=== PATIENT | male | born 1985 | race Caucasian/White ===

== ENCOUNTER 2018-01-01 10:53 | Emergency (ER) | payer OTHER, MEDICAID, SELFPAY ==
[2018-01-01 11:14] VITALS: BP 127/88; PULSE 90; RESP 18; TEMP 36.7; O2SAT 94
--- NOTE | 2018-01-01 12:02 | ED.ABDPAIN ---
HPI - Abdominal Pain <WILBER Beltran - Last Filed: 01/01/18 22:36> General Chief Complaint: Abdominal Pain Stated Complaint: CHEST PAIN, ABDOMINAL PAIN Time Seen by Provider: 01/01/18 12:02 Source: patient and family Mode of arrival: wheelchair History of Present Illness HPI narrative: 32-year-old male with history of cerebral palsy here for complaint of right-sided abdominal pain for the last week and a half. He also reports having chest pain on and off over the last several days. He denies any trauma. He also reports that he has been having constipation over the same timeframe. He was seen by his primary care provider a week and half ago and treated with MiraLax for the constipation. He reports that this has not helped. He is on Vicodin for pain at due to a compression fracture through his thoracic back. No fevers. Positive p.o. intake. No vomiting he does report having nausea periodically. Last bowel movement was several days ago. He denies any shortness of breath. Related Data Home Medications Medication Instructions Recorded Confirmed Vitamin C 1 tab PO QDAY 01/01/18 01/01/18 Vitamin D3 1 tab PO QDAY 01/01/18 01/01/18 baclofen 20 mg PO TID 01/01/18 01/01/18 hydrocodone-acetaminophen 1 tab PO PRN PRN 01/01/18 01/01/18 Previous Rx's Medication Instructions Recorded magnesium citrate 296 ml PO NOW #296 ml 01/01/18 sodium phosphates [Enema 118 ml MT NOW #133 ml 01/01/18 Disposable] Allergies Allergy/AdvReac Type Severity Reaction Status Date / Time gabapentin Allergy Unknown Verified 01/01/18 12:57 ibuprofen [From Motrin] Allergy Unknown Verified 01/01/18 12:57 Review of Systems <WILBER Beltran - Last Filed: 01/01/18 22:36> Constitutional Denies fever(s) Eyes Reports system reviewed and no additional complaints, except as docu ENT Ears, Nose, Mouth, and Throat: Reports system reviewed and no additional complaints, except as docu Cardiovascular Reports chest pain Respiratory Reports system reviewed and no additional complaints, except as docu Gastrointestinal Gastrointestinal: Reports abdominal pain, Reports constipation, Reports nausea and Denies vomiting Genitourinary Reports system reviewed and no additional complaints, except as docu Musculoskeletal Reports system reviewed and no additional complaints, except as docu Neurologic Reports system reviewed and no additional complaints, except as docu Exam <WILBER Beltran - Last Filed: 01/01/18 22:36> Const General: healthy appearing and No acute distress Nutritional Appearance: overweight Orientation: awake and oriented x3 HENMT Head: normocephalic and atraumatic Nose: external nose normal Mouth: moist mucous membranes Eyes Pupils: PERRL EOM: EOM intact bilaterally Resp Effort & Inspection: normal respiratory effort Auscultation: clear to auscultation bilaterally Cardio Rate: regular rate Rhythm: regular rhythm Heart Sounds: S1 normal, S2 normal, no click, no gallops and no murmurs GI Palpation: No hernia, No mass and tender (Tenderness on palpation to right lower and upper quadrant) Auscultation: normal bowel sounds General: No CVA tenderness Back/Spine/Pelvis Back: back tenderness and No CVA tenderness Skin General: dry skin and warm Neuro Motor: strength abnormal (Secondary to cerebral palsy) Sensory Exam: no sensory deficits noted Course <WILBER Beltran - Last Filed: 01/01/18 22:36> Orders Ordered: Discontinued Medications Sodium Chloride (Normal Saline 0.9%) 1,000 mls @ 1,000 mls/hr IV BOLUS ONE Stop: 01/01/18 13:20 Last Infusion: 01/01/18 14:20 Dose: 0 mls/hr Admin: 01/01/18 13:20 Dose: 1,000 mls/hr Morphine Sulfate (Morphine) 4 mg IV NOW ONE Stop: 01/01/18 12:22 Last Admin: 01/01/18 13:20 Dose: 4 mg Ondansetron HCl (Zofran) 4 mg IV NOW ONE Stop: 01/01/18 12:22 Last Admin: 01/01/18 13:20 Dose: 4 mg Last Vital Signs Temp 98.0 F 01/01/18 11:14 Pulse 93 H 01/01/18 15:00 Resp 17 01/01/18 15:00 BP 124/80 H 01/01/18 15:00 Pulse Ox 98 01/01/18 15:00 <Stefan Martinez MD - Last Filed: 01/10/18 04:49> Orders Ordered: Discontinued Medications Sodium Chloride (Normal Saline 0.9%) 1,000 mls @ 1,000 mls/hr IV BOLUS ONE Stop: 01/01/18 13:20 Last Infusion: 01/01/18 14:20 Dose: 0 mls/hr Admin: 01/01/18 13:20 Dose: 1,000 mls/hr Morphine Sulfate (Morphine) 4 mg IV NOW ONE Stop: 01/01/18 12:22 Last Admin: 01/01/18 13:20 Dose: 4 mg Ondansetron HCl (Zofran) 4 mg IV NOW ONE Stop: 01/01/18 12:22 Last Admin: 01/01/18 13:20 Dose: 4 mg Last Vital Signs Temp 98.0 F 01/01/18 11:14 Pulse 93 H 01/01/18 15:00 Resp 17 01/01/18 15:00 BP 124/80 H 01/01/18 15:00 Pulse Ox 98 01/01/18 15:00 MDM - Abdominal Pain <WILBER Beltran - Last Filed: 01/01/18 22:36> MDM Narrative Medical decision making narrative: Chest x-ray EKG and cardiac enzymes were obtained and were normal. CBC and Chem panel were unremarkable. Lipase was negative. CT of the abdomen was obtained was negative for any acute findings. Signs and symptoms of his chest pain presents as a muscle skeletal pain to the chest wall. Abdominal pain presents as secondary to constipation he is treated with Fleet's enema and magnesium citrate. Follow up with primary care provider. Use [id number] Tylenol as needed for any discomfort. For any worsening symptoms return to the emergency room. Lab Data Result diagrams: 01/01/18 13:10 01/01/18 13:10 Lab Results 01/01/18 01/01/18 01/01/18 Range/Units 13:10 13:10 13:10 WBC 10.4 (4.5-11.0) X10^3/uL RBC 5.29 (4.5-5.9) X10^6/uL Hgb 14.9 (13.5-17.5) g/dL Hct 43.3 (41-53) % MCV 81.9 (80-100) fL MCH 28.1 (26-34) PG MCHC 34.4 (30-36) % RDW 13.5 (11.6-14.8) % Plt Count 284 (150-400) X10^3/uL Neut % (Auto) 62.2 (50-75) % Lymph % (Auto) 25.4 (25-40) % [place] % (Auto) 10.2 (3-14) % Eos % (Auto) 1.5 L (2-4) % Baso % (Auto) 0.7 (0-2) % Neut # (Auto) 6500 H (5671-0459) /uL D-Dimer < 200 (<231) ng/mL Sodium Cancelled Potassium Cancelled Chloride Cancelled Carbon Dioxide Cancelled BUN Cancelled Creatinine Cancelled Estimated GFR Cancelled BUN/Creatinine Ratio Cancelled Glucose Cancelled Calcium Cancelled Total Bilirubin Cancelled AST Cancelled ALT Cancelled Alkaline Phosphatase Cancelled Total Creatine Kinase (55-170) U/L Troponin I (0.01-0.034) ng/mL Total Protein Cancelled Albumin Cancelled Globulin Cancelled Albumin/Globulin Ratio Cancelled Lipase Cancelled 01/01/18 Range/Units 13:10 WBC (4.5-11.0) X10^3/uL RBC (4.5-5.9) X10^6/uL Hgb (13.5-17.5) g/dL Hct (41-53) % MCV (80-100) fL MCH (26-34) PG MCHC (30-36) % RDW (11.6-14.8) % Plt Count (150-400) X10^3/uL Neut % (Auto) (50-75) % Lymph % (Auto) (25-40) % [place] % (Auto) (3-14) % Eos % (Auto) (2-4) % Baso % (Auto) (0-2) % Neut # (Auto) (8322-0309) /uL D-Dimer (<231) ng/mL Sodium 139 Potassium 3.9 Chloride 102.0 Carbon Dioxide 26.0 BUN 14.0 Creatinine 0.60 L Estimated GFR > 60.0 BUN/Creatinine Ratio 23.3 H Glucose 100 Calcium 9.0 Total Bilirubin 0.4 AST 26 ALT 63 Alkaline Phosphatase 68 Total Creatine Kinase 34 L (55-170) U/L Troponin I < 0.012 (0.01-0.034) ng/mL Total Protein 7.2 Albumin 4.1 Globulin 3.1 Albumin/Globulin Ratio 1.3 Lipase 94 Imaging Data Chest x-ray: Radiologist's impression: PROCEDURE: XR CHEST 1V INDICATIONS: 32 year-old male with right chest pain. TECHNIQUE: One view of the chest was acquired. COMPARISON: None. FINDINGS: Surgical changes and devices: None. Lungs and pleura: No pleural effusions or pneumothorax. Lungs are clear. Mediastinum: Mediastinal contours appear normal. Heart size is normal. Bones and chest wall: No suspicious bony lesions. Overlying soft tissues appear unremarkable. IMPRESSION: No acute cardiopulmonary disease. Dictated by: Saul Lr M.D. on 01/01/2018 at 12:35 Approved by: Saul Lr M.D. on 01/01/2018 at 12:36 CT scan - abdomen: Radiologist's impression: PROCEDURE: CT ABDOMEN PELVIS W CON INDICATIONS: Right-sided abdominal pain TECHNIQUE: After the administration of intravenous contrast, 5 mm thick sections acquired from the diaphragm to the symphysis. 5 mm coronal and sagittal reformats were acquired. For radiation dose reduction, the following was used: automated exposure control, adjustment of mA and/or kV according to patient size. COMPARISON: None. FINDINGS: Image quality: Excellent. ABDOMEN: Lung bases: Lung bases are clear. Heart size is normal. Solid organs: Mildly enlarged fatty infiltrated liver. No CT evidence of hepatic mass. Gallbladder is present. Biliary system is non dilated. Pancreas enhances normally. Spleen is normal in size and enhancement. No adrenal nodules. Kidneys demonstrate normal size and enhancement, without hydronephrosis. Peritoneum and bowel: Bowel loops demonstrate normal wall thickness and caliber. No free fluid or air. The appendix measures 5-6 mm at the upper limits of normal with no surrounding inflammation. Nodes and vessels: No retroperitoneal or mesenteric adenopathy by size criteria. Aorta and inferior vena cava are normal in size. Miscellaneous: No ventral hernias. PELVIS: Genitourinary: Bladder wall thickness is normal. Miscellaneous: No inguinal hernias or adenopathy. Bones: No suspicious bony lesions. No vertebral body compression fractures. IMPRESSION: The appendix measures at the upper limits of normal. There is no surrounding inflammation. Overall CT findings do not support acute appendicitis. Fatty infiltration of the liver. Dictated by: Chris Holder M.D. on 01/01/2018 at 14:10 Approved by: Chris Holder M.D. on 01/01/2018 at 14:16 ECG Data Interpretation: EKG shows normal sinus rhythm with no ST elevation or depression. No ectopy. Ventricular rate of 88. MT interval of 142. QRS duration of 106. QT of 344 <Stefan Martinez MD - Last Filed: 01/10/18 04:49> Lab Data The PA/RESIDENTIAL RECYCLE DRIVER functioned independently for the care of this pt, I was available, but not asked to participate in care. I am unable to determine appropriateness of management without personally examining the pt. Lab Results 01/01/18 01/01/18 01/01/18 Range/Units 13:10 13:10 13:10 WBC 10.4 (4.5-11.0) X10^3/uL RBC 5.29 (4.5-5.9) X10^6/uL Hgb 14.9 (13.5-17.5) g/dL Hct 43.3 (41-53) % MCV 81.9 (80-100) fL MCH 28.1 (26-34) PG MCHC 34.4 (30-36) % RDW 13.5 (11.6-14.8) % Plt Count 284 (150-400) X10^3/uL Neut % (Auto) 62.2 (50-75) % Lymph % (Auto) 25.4 (25-40) % [place] % (Auto) 10.2 (3-14) % Eos % (Auto) 1.5 L (2-4) % Baso % (Auto) 0.7 (0-2) % Neut # (Auto) 6500 H (9224-0885) /uL D-Dimer < 200 (<231) ng/mL Sodium Cancelled Potassium Cancelled Chloride Cancelled Carbon Dioxide Cancelled BUN Cancelled Creatinine Cancelled Estimated GFR Cancelled BUN/Creatinine Ratio Cancelled Glucose Cancelled Calcium Cancelled Total Bilirubin Cancelled AST Cancelled ALT Cancelled Alkaline Phosphatase Cancelled Total Creatine Kinase (55-170) U/L Troponin I (0.01-0.034) ng/mL Total Protein Cancelled Albumin Cancelled Globulin Cancelled Albumin/Globulin Ratio Cancelled Lipase Cancelled 01/01/18 Range/Units 13:10 WBC (4.5-11.0) X10^3/uL RBC (4.5-5.9) X10^6/uL Hgb (13.5-17.5) g/dL Hct (41-53) % MCV (80-100) fL MCH (26-34) PG MCHC (30-36) % RDW (11.6-14.8) % Plt Count (150-400) X10^3/uL Neut % (Auto) (50-75) % Lymph % (Auto) (25-40) % [place] % (Auto) (3-14) % Eos % (Auto) (2-4) % Baso % (Auto) (0-2) % Neut # (Auto) (3454-7262) /uL D-Dimer (<231) ng/mL Sodium 139 Potassium 3.9 Chloride 102.0 Carbon Dioxide 26.0 BUN 14.0 Creatinine 0.60 L Estimated GFR > 60.0 BUN/Creatinine Ratio 23.3 H Glucose 100 Calcium 9.0 Total Bilirubin 0.4 AST 26 ALT 63 Alkaline Phosphatase 68 Total Creatine Kinase 34 L (55-170) U/L Troponin I < 0.012 (0.01-0.034) ng/mL Total Protein 7.2 Albumin 4.1 Globulin 3.1 Albumin/Globulin Ratio 1.3 Lipase 94 Discharge Plan Departure Patient Disposition: Home, Self-Care Clinical Impression: Constipation, Acute chest wall pain Discharge Date/Time: 01/01/18 16:09 Interventions: ED Discharge Assessment Last Done: 01/01/18 16:08 Instructions: DI for Constipation Activity Restrictions/Additional Instructions: Laboratory results and the studies today were unremarkable. Signs and symptoms presents as chest wall pain and constipation. Use [id number] Tylenol as needed for any discomfort. For the constipation you are prescribed magnesium citrate and Fleet's enema use as directed. Follow up with primary care provider. Return emergency room for any worsening symptoms. Prescriptions: New sodium phosphates [Enema Disposable] 19-7 gram/118 mL enema 118 ml MT NOW Qty: 133 RF: 0 magnesium citrate solution 296 ml PO NOW Qty: 296 RF: 0 No Action hydrocodone-acetaminophen 5-325 mg tablet 1 tab PO PRN PRN (Reason: Pain, Moderate) RF: 0 baclofen 20 mg tablet 20 mg PO TID RF: 0 Vitamin C 1 tab PO QDAY RF: 0 Vitamin D3 1 tab PO QDAY RF: 0 Referrals: Santiago Reeder PA-C [Primary Care Provider] -
--- NOTE | 2018-01-01 12:23 | DI.CT.S_ITS ---
PROCEDURE: CT ABDOMEN PELVIS W CON INDICATIONS: Right-sided abdominal pain TECHNIQUE: After the administration of intravenous contrast, 5 mm thick sections acquired from the diaphragm to the symphysis. 5 mm coronal and sagittal reformats were acquired. For radiation dose reduction, the following was used: automated exposure control, adjustment of mA and/or kV according to patient size. COMPARISON: None. FINDINGS: Image quality: Excellent. ABDOMEN: Lung bases: Lung bases are clear. Heart size is normal. Solid organs: Mildly enlarged fatty infiltrated liver. No CT evidence of hepatic mass. Gallbladder is present. Biliary system is non dilated. Pancreas enhances normally. Spleen is normal in size and enhancement. No adrenal nodules. Kidneys demonstrate normal size and enhancement, without hydronephrosis. Peritoneum and bowel: Bowel loops demonstrate normal wall thickness and caliber. No free fluid or air. The appendix measures 5-6 mm at the upper limits of normal with no surrounding inflammation. Nodes and vessels: No retroperitoneal or mesenteric adenopathy by size criteria. Aorta and inferior vena cava are normal in size. Miscellaneous: No ventral hernias. PELVIS: Genitourinary: Bladder wall thickness is normal. Miscellaneous: No inguinal hernias or adenopathy. Bones: No suspicious bony lesions. No vertebral body compression fractures. IMPRESSION: The appendix measures at the upper limits of normal. There is no surrounding inflammation. Overall CT findings do not support acute appendicitis. Fatty infiltration of the liver. Dictated by: Chris Holder M.D. on 01/01/2018 at 14:10 Approved by: Chris Holder M.D. on 01/01/2018 at 14:16
--- NOTE | 2018-01-01 12:23 | DI.RAD.S_ITS ---
PROCEDURE: XR CHEST 1V INDICATIONS: 32 year-old male with right chest pain. TECHNIQUE: One view of the chest was acquired. COMPARISON: None. FINDINGS: Surgical changes and devices: None. Lungs and pleura: No pleural effusions or pneumothorax. Lungs are clear. Mediastinum: Mediastinal contours appear normal. Heart size is normal. Bones and chest wall: No suspicious bony lesions. Overlying soft tissues appear unremarkable. IMPRESSION: No acute cardiopulmonary disease. Dictated by: Saul Lr M.D. on 01/01/2018 at 12:35 Approved by: Saul Lr M.D. on 01/01/2018 at 12:36
[2018-01-01 13:18] LABS: Add Manual Diff / Slide Review NO; Basophils Percent Auto 0.7 % (0-2); Eosinophils Percent Auto 1.5 % (2-4); Hematocrit 43.3 % (41-53); Hemoglobin 14.9 g/dL (13.5-17.5); Lymphocytes Percent Auto 25.4 % (25-40); Mean Corpuscular HGB Conc 34.4 % (30-36); Mean Corpuscular Hemoglobin 28.1 PG (26-34); Mean Corpuscular Volume 81.9 fL (80-100); Monocytes Percent Auto 10.2 % (3-14); Neutrophils Absolute Auto 6500 /uL (3000-5900); Neutrophils Percent Auto 62.2 % (50-75); Platelet Count 284 X10^3/uL (150-400); Red Blood Cell Count 5.29 X10^6/uL (4.5-5.9); Red Cell Distribution Width 13.5 % (11.6-14.8); White Blood Cell Count 10.4 X10^3/uL (4.5-11.0)
[2018-01-01 13:20] VITALS: BP 146/91; PULSE 85; RESP 20; O2SAT 100
[2018-01-01] MEDS: SODIUM CHLORIDE 0.9% 1,000 ML 1000 ML IV (13:20)
[2018-01-01] MEDS: ONDANSETRON 4 MG/2 ML INJ IV (13:20)
[2018-01-01] MEDS: MORPHINE 4 MG/ML VIAL IV (13:20)
[2018-01-01 13:33] LABS: D Dimer < 200 ng/mL (<231)
[2018-01-01 13:35] LABS: Alanine Aminotransferase 63 IU/L (21-72); Albumin 4.1 g/dL (3.5-5.0); Albumin Globulin Ratio 1.3 (1.0-2.8); Alkaline Phosphatase 68 U/L (38-126); Aspartate Aminotransferase 26 IU/L (17-59); BUN Creatinine Ratio 23.3 (6-22); Bilirubin Total 0.4 mg/dL (0.2-1.3); Creatine Kinase 34 U/L (55-170); Estimated Glomerular Filt Rate > 60.0 mL/min (>60); Globulin 3.1 g/dL (1.7-4.1); Glucose 100 mg/dL (70-100); HEMOLYSIS 15 (0-50); Lipase 94 U/L (23-300); Potassium 3.9 mmol/L (3.4-5.1); Sodium 139 mmol/L (137-145); Total Protein 7.2 g/dL (6.3-8.2)
[2018-01-01 13:40] VITALS: BP 120/72; PULSE 88; RESP 19; O2SAT 98
[2018-01-01 13:49] LABS: Troponin I < 0.012 ng/mL (0.01-0.034)
[2018-01-01 14:15] VITALS: BP 117/85; PULSE 88; RESP 22; O2SAT 98
[2018-01-01 15:00] VITALS: BP 124/80; PULSE 93; RESP 17; O2SAT 98
== END 2018-01-01 16:09 | disposition home or self-care (01) ==
PROVIDERS: Emergency Provider Nurse Practitioner Family; Family Provider Physician Assistant; PCP Physician Assistant
DX: K59.00 Constipation, unspecified (principal); R07.89 Other chest pain
CPT/HCPCS: 36591; 71045; 74177; 80053; 81003; 82550; 82553; 83690; 84484; 85025; 85379; 93005; 96374; 96375; 99283; 99285; J2270; J2405; Q9967

== ENCOUNTER 2018-01-16 15:47 | Inpatient (IN) | payer MEDICAID, SELFPAY ==
[2018-01-16] VITALS (8 sets, daily range): BP systolic 99–140; BP diastolic 48–89; PULSE 90–120; RESP 16–24; TEMP 36.8–36.9; O2SAT 92–100
--- NOTE | 2018-01-16 15:46 | DI.RAD.S_ITS ---
PROCEDURE: XR CHEST 1V INDICATIONS: cough TECHNIQUE: One view of the chest was acquired. COMPARISON: [facility], CR, XR CHEST 1V, 01/01/2018, 12:27. FINDINGS: Surgical changes and devices: None. Lungs and pleura: No pleural effusions or pneumothorax. Lungs are clear. Low lung volumes noted. Mediastinum: Mediastinal contours appear normal. Heart size is normal. Bones and chest wall: No suspicious bony lesions. Overlying soft tissues appear unremarkable. IMPRESSION: No acute cardiopulmonary disease process. Dictated by: Savana Azevedo MD, PhD on 01/16/2018 at 15:53 Approved by: Savana Azevedo MD, PhD on 01/16/2018 at 15:54
--- NOTE | 2018-01-16 15:57 | ED.WEAKNESS ---
HPI - Weakness <Nasra Carreno MD - Last Filed: 01/17/18 07:49> General Chief complaint: Weakness Stated complaint: WEAKNESS Time Seen by Provider: 01/16/18 15:56 Source: patient and EMS Mode of arrival: EMS Limitations: no limitations History of Present Illness HPI Narrative: 32 m with hx cerebral palsy has 4 hours of increasing generalized weakness and malaise. Normally able to ambulate a little and transfer self, today was too weak to leave bathroom, or stand. Has 2 days of cough. Reports feeling warm, but no fever/chills. no nausea/vomiting. Had appointment today with urologist for evaluation of reported bladder mass. Reports intermittent difficulty with passing urine. Related Data Home Medications Medication Instructions Recorded Confirmed Vitamin C 1 tab PO QDAY 01/01/18 01/16/18 Vitamin D3 1 tab PO QDAY 01/01/18 01/16/18 baclofen 20 mg PO QID PRN MDD 4 01/01/18 01/16/18 hydrocodone-acetaminophen 1 - 2 tab PO Q4-6H PRN MDD 6 01/01/18 01/16/18 cyclobenzaprine 1 - 2 tab PO QHS PRN 01/16/18 01/16/18 methocarbamol 1 tab PO BID PRN 01/16/18 01/16/18 nortriptyline 20 mg PO 4-6XD 01/16/18 01/16/18 Allergies Allergy/AdvReac Type Severity Reaction Status Date / Time gabapentin Allergy Unknown Verified 01/16/18 15:53 ibuprofen [From Motrin] Allergy Unknown Verified 01/16/18 15:53 Review of Systems <Nasra Carreno MD - Last Filed: 01/17/18 07:49> Constitutional Denies chills, Denies fever(s), Denies lethargy and Reports weakness ENT Ears, Nose, Mouth, and Throat: Denies change in voice, Denies neck pain and Denies sore throat Cardiovascular Denies chest pain, Denies irregular heart rhythm, Denies lightheadedness, Denies palpitations, Denies dyspnea, Denies dyspnea on exertion and Denies orthopnea Respiratory Reports cough, Denies dyspnea, Denies dyspnea on exertion and Denies wheezing Gastrointestinal Gastrointestinal: Denies abdominal pain, Denies change in bowel habits, Denies diarrhea, Denies nausea and Denies vomiting Genitourinary Denies hematuria, Reports dysuria, Denies flank pain, Reports urinary hesitancy, Denies urinary incontinence and Denies urinary urgency Musculoskeletal Denies neck pain Integumentary/Breasts Denies pruritus, Denies erythema, Denies rash and Denies wounds Neurologic Reports weakness Endocrine Denies palpitations Hematologic/Lymphatic Denies easy bruising Allergic/Immunologic Denies wheezing Exam <Nasra Carreno MD - Last Filed: 01/17/18 07:49> Initial Vital Signs Initial Vital Signs: Vital Signs Temperature 98.3 F 01/16/18 15:53 Pulse Rate 102 H 01/16/18 15:53 Respiratory Rate 20 01/16/18 15:53 Blood Pressure 126/85 H 01/16/18 15:53 Pulse Oximetry 95 01/16/18 15:53 Const General: cooperative Nutritional Appearance: well nourished and overweight Orientation: alert, awake, oriented x3 and not confused HENVT Head: normocephalic and atraumatic Ears: external ears normal Nose: external nose normal and No nasal discharge Face and sinus: sinuses nontender, face symmetric, no sinus tenderness and No dry mucous membranes Mouth: oral mucosae normal and moist mucous membranes Teeth and gingiva: dentition normal Throat: tonsils normal and uvula midline Neck Neck: normal visual inspection, trachea midline, No lymphadenopathy, No midline deformity and No JVD Lymphatic: No lymphedema Chest Chest: normal inspection of the chest Resp Effort & Inspection: normal respiratory effort, able to speak in complete sentences, no respiratory distress and no use of accessory muscles Auscultation: clear to auscultation bilaterally, no rales, no rhonchi and no wheezes Cardio Rate: regular rate Rhythm: regular rhythm Heart Sounds: no click, no gallops, no murmurs and no rubs Pulses: normal peripheral pulses GI Inspection: non-distended Palpation: soft, no hepatosplenomegaly, No guarding, No pulsatile mass and No tender Auscultation: normal bowel sounds Back/Spine/Pelvis Back: No back tenderness and No CVA tenderness Skin General: no rashes or lesions noted, No jaundice and No petechiae Neuro General: alert, awake, oriented x3 and moves all extremities Extrem General: no clubbing, cyanosis or edema, no pedal edema and no calf tenderness <Deyanira Mosley DO - Last Filed: 01/17/18 02:00> Initial Vital Signs Initial Vital Signs: Vital Signs Temperature 98.3 F 01/16/18 15:53 Pulse Rate 102 H 01/16/18 15:53 Respiratory Rate 20 01/16/18 15:53 Blood Pressure 126/85 H 01/16/18 15:53 Pulse Oximetry 95 01/16/18 15:53 Course <Nasra Carreno MD - Last Filed: 01/17/18 07:49> Orders Ordered: Hydrocodone Bitart/Acetaminophen ([place] 5/325) 1 tab PO Q4HR PRN PRN Reason: Pain, Moderate Last Admin: 01/17/18 04:05 Dose: 1 tab Hydrocodone Bitart/Acetaminophen ([place] 5/325) 2 tab PO Q4HR PRN PRN Reason: Pain, Severe Last Admin: 01/17/18 05:31 Dose: 1 tab Baclofen (Lioresal) 20 mg PO QID SHARLENE Last Admin: 01/17/18 04:06 Dose: 20 mg Cyclobenzaprine HCl (Flexeril) 5 mg PO BEDTIME PRN PRN Reason: Spasms Cyclobenzaprine HCl (Flexeril) 10 mg PO BEDTIME PRN PRN Reason: Spasms Sodium Chloride (Normal Saline 0.9%) 1,000 mls @ 125 mls/hr IV CONT SHARLENE Last Admin: 01/17/18 01:45 Dose: 125 mls/hr Methocarbamol (Robaxin) 500 mg PO BID PRN PRN Reason: Muscle Spasm Discontinued Medications Acetaminophen (Tylenol) 975 mg PO NOW ONE Stop: 01/16/18 22:38 Last Admin: 01/16/18 22:39 Dose: 975 mg Sodium Chloride (Normal Saline 0.9%) 1,000 mls @ 1,000 mls/hr IV BOLUS ONE Stop: 01/16/18 17:01 Last Admin: 01/16/18 16:14 Dose: Sodium Chloride (Normal Saline 0.9%) 1,000 mls @ 1,000 mls/hr IV BOLUS ONE Stop: 01/16/18 18:11 Last Infusion: 01/16/18 18:47 Dose: 0 mls/hr Admin: 01/16/18 17:00 Dose: 1,000 mls/hr Sodium Chloride (Normal Saline 0.9%) 500 mls @ 1,000 mls/hr IV BOLUS ONE Stop: 01/16/18 22:05 Last Infusion: 01/17/18 00:39 Dose: 0 mls/hr Admin: 01/16/18 22:36 Dose: 1,000 mls/hr Vital Signs - 8 hr 01/17/18 01:23 Temperature 98.8 F Pulse Rate 101 H Respiratory Rate 16 Blood Pressure 113/54 L Pulse Oximetry 96 <Deyanira Mosley, - Last Filed: 01/17/18 02:00> Orders Ordered: Hydrocodone Bitart/Acetaminophen ([place] 5/325) 1 tab PO Q4HR PRN PRN Reason: Pain, Moderate Last Admin: 01/17/18 04:05 Dose: 1 tab Hydrocodone Bitart/Acetaminophen ([place] 5/325) 2 tab PO Q4HR PRN PRN Reason: Pain, Severe Last Admin: 01/17/18 05:31 Dose: 1 tab Baclofen (Lioresal) 20 mg PO QID SHARLENE Last Admin: 01/17/18 04:06 Dose: 20 mg Cyclobenzaprine HCl (Flexeril) 5 mg PO BEDTIME PRN PRN Reason: Spasms Cyclobenzaprine HCl (Flexeril) 10 mg PO BEDTIME PRN PRN Reason: Spasms Sodium Chloride (Normal Saline 0.9%) 1,000 mls @ 125 mls/hr IV CONT SHARLENE Last Admin: 01/17/18 01:45 Dose: 125 mls/hr Methocarbamol (Robaxin) 500 mg PO BID PRN PRN Reason: Muscle Spasm Discontinued Medications Acetaminophen (Tylenol) 975 mg PO NOW ONE Stop: 01/16/18 22:38 Last Admin: 01/16/18 22:39 Dose: 975 mg Sodium Chloride (Normal Saline 0.9%) 1,000 mls @ 1,000 mls/hr IV BOLUS ONE Stop: 01/16/18 17:01 Last Admin: 01/16/18 16:14 Dose: Sodium Chloride (Normal Saline 0.9%) 1,000 mls @ 1,000 mls/hr IV BOLUS ONE Stop: 01/16/18 18:11 Last Infusion: 01/16/18 18:47 Dose: 0 mls/hr Admin: 01/16/18 17:00 Dose: 1,000 mls/hr Sodium Chloride (Normal Saline 0.9%) 500 mls @ 1,000 mls/hr IV BOLUS ONE Stop: 01/16/18 22:05 Last Infusion: 01/17/18 00:39 Dose: 0 mls/hr Admin: 01/16/18 22:36 Dose: 1,000 mls/hr Vital Signs - 8 hr 01/17/18 01:23 Temperature 98.8 F Pulse Rate 101 H Respiratory Rate 16 Blood Pressure 113/54 L Pulse Oximetry 96 MDM - Weakness <Nasra Carreno MD - Last Filed: 01/17/18 07:49> Lab Data Result diagrams: 01/16/18 16:10 01/16/18 16:10 Lab Results 01/16/18 01/16/18 01/16/18 Range/Units 16:10 16:10 16:10 WBC 14.4 H (4.5-11.0) X10^3/uL RBC 5.62 (4.5-5.9) X10^6/uL Hgb 15.6 (13.5-17.5) g/dL Hct 45.7 (41-53) % MCV 81.4 (80-100) fL MCH 27.8 (26-34) PG MCHC 34.1 (30-36) % RDW 13.4 (11.6-14.8) % Plt Count 287 (150-400) X10^3/uL Neut % (Auto) 68.3 (50-75) % Lymph % (Auto) 21.8 L (25-40) % [place] % (Auto) 8.9 (3-14) % Eos % (Auto) 0.8 L (2-4) % Baso % (Auto) 0.2 (0-2) % Neut # (Auto) 9800 H (9632-5779) /uL D-Dimer (<231) ng/mL Sodium 140 (137-145) mmol/L Potassium 3.7 (3.4-5.1) mmol/L Chloride 104.0 (98-107) mmol/L Carbon Dioxide 22.0 (22-32) mmol/L BUN 16.0 (9-20) mg/dL Creatinine 0.60 L (0.66-1.25) mg/dL Estimated GFR > 60.0 (>60) mL/min BUN/Creatinine Ratio 26.7 H (6-22) Glucose 92 (70-100) mg/dL Lactate 0.7 (0.7-2.1) mmol/L Calcium 9.3 (8.4-10.2) mg/dL Magnesium 2.1 (1.6-2.3) mg/dL Total Bilirubin 0.4 (0.2-1.3) mg/dL AST 17 (17-59) IU/L ALT 42 (21-72) IU/L Alkaline Phosphatase 76 (38-126) U/L Total Creatine Kinase (55-170) U/L Total Protein 7.7 (6.3-8.2) g/dL Albumin 4.2 (3.5-5.0) g/dL Globulin 3.5 (1.7-4.1) g/dL Albumin/Globulin Ratio 1.2 (1.0-2.8) Urine Color Urine Appearance Urine pH (4.5-8.0) Ur Specific [place] (1.000-1.035) Urine Protein (Negative) Urine Glucose (UA) (Negative) g/dL Urine Ketones (NEGATIVE) Urine Occult Blood (Negative) Urine Nitrate (Negative) Urine Bilirubin (NEGATIVE) Urine Urobilinogen (0.2) E.U./dL Ur Leukocyte Esterase (NEGATIVE) Urine RBC (0-5/HPF) Urine WBC (0-5/HPF) Ur Squamous Epith Cells Urine Bacteria (None) Ur Culture Indicated? Micro UA Comment 01/16/18 01/16/18 01/16/18 Range/Units 16:10 20:55 21:49 WBC (4.5-11.0) X10^3/uL RBC (4.5-5.9) X10^6/uL Hgb (13.5-17.5) g/dL Hct (41-53) % MCV (80-100) fL MCH (26-34) PG MCHC (30-36) % RDW (11.6-14.8) % Plt Count (150-400) X10^3/uL Neut % (Auto) (50-75) % Lymph % (Auto) (25-40) % [place] % (Auto) (3-14) % Eos % (Auto) (2-4) % Baso % (Auto) (0-2) % Neut # (Auto) (2194-0739) /uL D-Dimer < 200 (<231) ng/mL Sodium (137-145) mmol/L Potassium (3.4-5.1) mmol/L Chloride (98-107) mmol/L Carbon Dioxide (22-32) mmol/L BUN (9-20) mg/dL Creatinine (0.66-1.25) mg/dL Estimated GFR (>60) mL/min BUN/Creatinine Ratio (6-22) Glucose (70-100) mg/dL Lactate (0.7-2.1) mmol/L Calcium (8.4-10.2) mg/dL Magnesium (1.6-2.3) mg/dL Total Bilirubin (0.2-1.3) mg/dL AST (17-59) IU/L ALT (21-72) IU/L Alkaline Phosphatase (38-126) U/L Total Creatine Kinase 65 (55-170) U/L Total Protein (6.3-8.2) g/dL Albumin (3.5-5.0) g/dL Globulin (1.7-4.1) g/dL Albumin/Globulin Ratio (1.0-2.8) Urine Color Yellow Urine Appearance Clear Urine pH 5.0 (4.5-8.0) Ur Specific [place] 1.025 (1.000-1.035) Urine Protein Negative (Negative) Urine Glucose (UA) Negative (Negative) g/dL Urine Ketones Trace H (NEGATIVE) Urine Occult Blood 3+ H (Negative) Urine Nitrate Negative (Negative) Urine Bilirubin Negative (NEGATIVE) Urine Urobilinogen 0.2 (0.2) E.U./dL Ur Leukocyte Esterase Negative (NEGATIVE) Urine RBC 10-30/hpf H (0-5/HPF) Urine WBC 0-1/hpf (0-5/HPF) Ur Squamous Epith Cells None seen Urine Bacteria None seen (None) Ur Culture Indicated? Not Reportable Micro UA Comment Not Reportable ECG Data Interpretation: Sinus Tachycardia HR [address]/Tw changes - Lead III No ectopy FL intervals WNL MDM Narrative Medical decision making narrative: CP patient with somewhat acute onset weakness. Tachycardic on evaluation. After 2L NS, patient HR 90s. Having difficulty making urine. May need additional hydration, may need morales. If symptoms do not significantly improve, may need abdominal imaging. <Deyanira Mosley, DO - Last Filed: 01/17/18 02:00> Lab Data Lab Results 01/16/18 01/16/18 01/16/18 Range/Units 16:10 16:10 16:10 WBC 14.4 H (4.5-11.0) X10^3/uL RBC 5.62 (4.5-5.9) X10^6/uL Hgb 15.6 (13.5-17.5) g/dL Hct 45.7 (41-53) % MCV 81.4 (80-100) fL MCH 27.8 (26-34) PG MCHC 34.1 (30-36) % RDW 13.4 (11.6-14.8) % Plt Count 287 (150-400) X10^3/uL Neut % (Auto) 68.3 (50-75) % Lymph % (Auto) 21.8 L (25-40) % [place] % (Auto) 8.9 (3-14) % Eos % (Auto) 0.8 L (2-4) % Baso % (Auto) 0.2 (0-2) % Neut # (Auto) 9800 H (0998-8320) /uL D-Dimer (<231) ng/mL Sodium 140 (137-145) mmol/L Potassium 3.7 (3.4-5.1) mmol/L Chloride 104.0 (98-107) mmol/L Carbon Dioxide 22.0 (22-32) mmol/L BUN 16.0 (9-20) mg/dL Creatinine 0.60 L (0.66-1.25) mg/dL Estimated GFR > 60.0 (>60) mL/min BUN/Creatinine Ratio 26.7 H (6-22) Glucose 92 (70-100) mg/dL Lactate 0.7 (0.7-2.1) mmol/L Calcium 9.3 (8.4-10.2) mg/dL Magnesium 2.1 (1.6-2.3) mg/dL Total Bilirubin 0.4 (0.2-1.3) mg/dL AST 17 (17-59) IU/L ALT 42 (21-72) IU/L Alkaline Phosphatase 76 (38-126) U/L Total Creatine Kinase (55-170) U/L Total Protein 7.7 (6.3-8.2) g/dL Albumin 4.2 (3.5-5.0) g/dL Globulin 3.5 (1.7-4.1) g/dL Albumin/Globulin Ratio 1.2 (1.0-2.8) Urine Color Urine Appearance Urine pH (4.5-8.0) Ur Specific [place] (1.000-1.035) Urine Protein (Negative) Urine Glucose (UA) (Negative) g/dL Urine Ketones (NEGATIVE) Urine Occult Blood (Negative) Urine Nitrate (Negative) Urine Bilirubin (NEGATIVE) Urine Urobilinogen (0.2) E.U./dL Ur Leukocyte Esterase (NEGATIVE) Urine RBC (0-5/HPF) Urine WBC (0-5/HPF) Ur Squamous Epith Cells Urine Bacteria (None) Ur Culture Indicated? Micro UA Comment 01/16/18 01/16/18 01/16/18 Range/Units 16:10 20:55 21:49 WBC (4.5-11.0) X10^3/uL RBC (4.5-5.9) X10^6/uL Hgb (13.5-17.5) g/dL Hct (41-53) % MCV (80-100) fL MCH (26-34) PG MCHC (30-36) % RDW (11.6-14.8) % Plt Count (150-400) X10^3/uL Neut % (Auto) (50-75) % Lymph % (Auto) (25-40) % [place] % (Auto) (3-14) % Eos % (Auto) (2-4) % Baso % (Auto) (0-2) % Neut # (Auto) (1979-5329) /uL D-Dimer < 200 (<231) ng/mL Sodium (137-145) mmol/L Potassium (3.4-5.1) mmol/L Chloride (98-107) mmol/L Carbon Dioxide (22-32) mmol/L BUN (9-20) mg/dL Creatinine (0.66-1.25) mg/dL Estimated GFR (>60) mL/min BUN/Creatinine Ratio (6-22) Glucose (70-100) mg/dL Lactate (0.7-2.1) mmol/L Calcium (8.4-10.2) mg/dL Magnesium (1.6-2.3) mg/dL Total Bilirubin (0.2-1.3) mg/dL AST (17-59) IU/L ALT (21-72) IU/L Alkaline Phosphatase (38-126) U/L Total Creatine Kinase 65 (55-170) U/L Total Protein (6.3-8.2) g/dL Albumin (3.5-5.0) g/dL Globulin (1.7-4.1) g/dL Albumin/Globulin Ratio (1.0-2.8) Urine Color Yellow Urine Appearance Clear Urine pH 5.0 (4.5-8.0) Ur Specific [place] 1.025 (1.000-1.035) Urine Protein Negative (Negative) Urine Glucose (UA) Negative (Negative) g/dL Urine Ketones Trace H (NEGATIVE) Urine Occult Blood 3+ H (Negative) Urine Nitrate Negative (Negative) Urine Bilirubin Negative (NEGATIVE) Urine Urobilinogen 0.2 (0.2) E.U./dL Ur Leukocyte Esterase Negative (NEGATIVE) Urine RBC 10-30/hpf H (0-5/HPF) Urine WBC 0-1/hpf (0-5/HPF) Ur Squamous Epith Cells None seen Urine Bacteria None seen (None) Ur Culture Indicated? 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 Morales catheter is present. MDM Narrative Medical decision making narrative: Patient has not been able to urinate with 400cc in his bladder. A Morales catheter was placed. Her urine does appear quite dark. He remains weak. I personally stood by his bedside all he attempted to stand and bear weight with a walker and assistance. Is on able to get himself up. He does not have a lot of mobility but is able to generally walk and help get around. He has mild leukocytosis was blood in his urine but no sign of infection. Lactic acid is normal. No sign of rhabdomyolysis. No history of trauma. According the nurses while the Morales catheter was placed he did move his legs some he has good sensation bilaterally peripheral pulses are intact. I have spoken with Dr. Pollock in regards to on admitting. She agrees to observation. Will continue IV fluids. Discharge Plan Departure Patient Disposition: Admitted as Observation Discharge Date/Time: 01/17/18 00:50 Interventions: ED Discharge Assessment Last Done: 01/16/18 23:35 Admit Date/Time: 01/16/18 23:33 Admit Provider: Loida Pollock <Deyanira Mosley DO - Last Filed: 01/17/18 02:00> Sign Out Provider Sign Out Attestation: Patient signed out to me at shift change. I have seen evaluated patient myself. Awaiting urination. She is tolerating oral fluids he has had 2 L of IV fluids. He says he is feeling little bit better.
--- NOTE | 2018-01-16 16:02 | ED_ITS ---
HPI - Weakness <Nasra Carreno MD - Last Filed: 01/17/18 07:49> General Chief complaint: Weakness Stated complaint: WEAKNESS Time Seen by Provider: 01/16/18 15:56 Source: patient and EMS Mode of arrival: EMS Limitations: no limitations History of Present Illness HPI Narrative: 32 m with hx cerebral palsy has 4 hours of increasing generalized weakness and malaise. Normally able to ambulate a little and transfer self, today was too weak to leave bathroom, or stand. Has 2 days of cough. Reports feeling warm, but no fever/chills. no nausea/vomiting. Had appointment today with urologist for evaluation of reported bladder mass. Reports intermittent difficulty with passing urine. Related Data Home Medications Medication Instructions Recorded Confirmed Vitamin C 1 tab PO QDAY 01/01/18 01/16/18 Vitamin D3 1 tab PO QDAY 01/01/18 01/16/18 baclofen 20 mg PO QID PRN MDD 4 01/01/18 01/16/18 hydrocodone-acetaminophen 1 - 2 tab PO Q4-6H PRN MDD 6 01/01/18 01/16/18 cyclobenzaprine 1 - 2 tab PO QHS PRN 01/16/18 01/16/18 methocarbamol 1 tab PO BID PRN 01/16/18 01/16/18 nortriptyline 20 mg PO 4-6XD 01/16/18 01/16/18 Allergies Allergy/AdvReac Type Severity Reaction Status Date / Time gabapentin Allergy Unknown Verified 01/16/18 15:53 ibuprofen [From Motrin] Allergy Unknown Verified 01/16/18 15:53 Review of Systems <Nasra Carreno MD - Last Filed: 01/17/18 07:49> Constitutional Denies chills, Denies fever(s), Denies lethargy and Reports weakness ENT Ears, Nose, Mouth, and Throat: Denies change in voice, Denies neck pain and Denies sore throat Cardiovascular Denies chest pain, Denies irregular heart rhythm, Denies lightheadedness, Denies palpitations, Denies dyspnea, Denies dyspnea on exertion and Denies orthopnea Respiratory Reports cough, Denies dyspnea, Denies dyspnea on exertion and Denies wheezing Gastrointestinal Gastrointestinal: Denies abdominal pain, Denies change in bowel habits, Denies diarrhea, Denies nausea and Denies vomiting Genitourinary Denies hematuria, Reports dysuria, Denies flank pain, Reports urinary hesitancy , Denies urinary incontinence and Denies urinary urgency Musculoskeletal Denies neck pain Integumentary/Breasts Denies pruritus, Denies erythema, Denies rash and Denies wounds Neurologic Reports weakness Endocrine Denies palpitations Hematologic/Lymphatic Denies easy bruising Allergic/Immunologic Denies wheezing Exam <Nasra Carreno MD - Last Filed: 01/17/18 07:49> Initial Vital Signs Initial Vital Signs: Vital Signs Temperature 98.3 F 01/16/18 15:53 Pulse Rate 102 H 01/16/18 15:53 Respiratory Rate 20 01/16/18 15:53 Blood Pressure 126/85 H 01/16/18 15:53 Pulse Oximetry 95 01/16/18 15:53 Const General: cooperative Nutritional Appearance: well nourished and overweight Orientation: alert, awake, oriented x3 and not confused HENIA Head: normocephalic and atraumatic Ears: external ears normal Nose: external nose normal and No nasal discharge Face and sinus: sinuses nontender, face symmetric, no sinus tenderness and No dry mucous membranes Mouth: oral mucosae normal and moist mucous membranes Teeth and gingiva: dentition normal Throat: tonsils normal and uvula midline Neck Neck: normal visual inspection, trachea midline, No lymphadenopathy, No midline deformity and No JVD Lymphatic: No lymphedema Chest Chest: normal inspection of the chest Resp Effort & Inspection: normal respiratory effort, able to speak in complete sentences, no respiratory distress and no use of accessory muscles Auscultation: clear to auscultation bilaterally, no rales, no rhonchi and no wheezes Cardio Rate: regular rate Rhythm: regular rhythm Heart Sounds: no click, no gallops, no murmurs and no rubs Pulses: normal peripheral pulses GI Inspection: non-distended Palpation: soft, no hepatosplenomegaly, No guarding, No pulsatile mass and No tender Auscultation: normal bowel sounds Back/Spine/Pelvis Back: No back tenderness and No CVA tenderness Skin General: no rashes or lesions noted, No jaundice and No petechiae Neuro General: alert, awake, oriented x3 and moves all extremities Extrem General: no clubbing, cyanosis or edema, no pedal edema and no calf tenderness <Deyanira Mosley DO - Last Filed: 01/17/18 02:00> Initial Vital Signs Initial Vital Signs: Vital Signs Temperature 98.3 F 01/16/18 15:53 Pulse Rate 102 H 01/16/18 15:53 Respiratory Rate 20 01/16/18 15:53 Blood Pressure 126/85 H 01/16/18 15:53 Pulse Oximetry 95 01/16/18 15:53 Course <Nasra Carreno MD - Last Filed: 01/17/18 07:49> Orders Ordered: Hydrocodone Bitart/Acetaminophen (Trimont 5/325) 1 tab PO Q4HR PRN PRN Reason: Pain, Moderate Last Admin: 01/17/18 04:05 Dose: 1 tab Hydrocodone Bitart/Acetaminophen (Trimont 5/325) 2 tab PO Q4HR PRN PRN Reason: Pain, Severe Last Admin: 01/17/18 05:31 Dose: 1 tab Baclofen (Lioresal) 20 mg PO QID SHARLENE Last Admin: 01/17/18 04:06 Dose: 20 mg Cyclobenzaprine HCl (Flexeril) 5 mg PO BEDTIME PRN PRN Reason: Spasms Cyclobenzaprine HCl (Flexeril) 10 mg PO BEDTIME PRN PRN Reason: Spasms Sodium Chloride (Normal Saline 0.9%) 1,000 mls @ 125 mls/hr IV CONT SHARLENE Last Admin: 01/17/18 01:45 Dose: 125 mls/hr Methocarbamol (Robaxin) 500 mg PO BID PRN PRN Reason: Muscle Spasm Discontinued Medications Acetaminophen (Tylenol) 975 mg PO NOW ONE Stop: 01/16/18 22:38 Last Admin: 01/16/18 22:39 Dose: 975 mg Sodium Chloride (Normal Saline 0.9%) 1,000 mls @ 1,000 mls/hr IV BOLUS ONE Stop: 01/16/18 17:01 Last Admin: 01/16/18 16:14 Dose: Sodium Chloride (Normal Saline 0.9%) 1,000 mls @ 1,000 mls/hr IV BOLUS ONE Stop: 01/16/18 18:11 Last Infusion: 01/16/18 18:47 Dose: 0 mls/hr Admin: 01/16/18 17:00 Dose: 1,000 mls/hr Sodium Chloride (Normal Saline 0.9%) 500 mls @ 1,000 mls/hr IV BOLUS ONE Stop: 01/16/18 22:05 Last Infusion: 01/17/18 00:39 Dose: 0 mls/hr Admin: 01/16/18 22:36 Dose: 1,000 mls/hr Vital Signs - 8 hr 01/17/18 01:23 Temperature 98.8 F Pulse Rate 101 H Respiratory Rate 16 Blood Pressure 113/54 L Pulse Oximetry 96 <Deyanira Mosley, - Last Filed: 01/17/18 02:00> Orders Ordered: Hydrocodone Bitart/Acetaminophen (Trimont 5/325) 1 tab PO Q4HR PRN PRN Reason: Pain, Moderate Last Admin: 01/17/18 04:05 Dose: 1 tab Hydrocodone Bitart/Acetaminophen (Trimont 5/325) 2 tab PO Q4HR PRN PRN Reason: Pain, Severe Last Admin: 01/17/18 05:31 Dose: 1 tab Baclofen (Lioresal) 20 mg PO QID SHARLENE Last Admin: 01/17/18 04:06 Dose: 20 mg Cyclobenzaprine HCl (Flexeril) 5 mg PO BEDTIME PRN PRN Reason: Spasms Cyclobenzaprine HCl (Flexeril) 10 mg PO BEDTIME PRN PRN Reason: Spasms Sodium Chloride (Normal Saline 0.9%) 1,000 mls @ 125 mls/hr IV CONT SHARLENE Last Admin: 01/17/18 01:45 Dose: 125 mls/hr Methocarbamol (Robaxin) 500 mg PO BID PRN PRN Reason: Muscle Spasm Discontinued Medications Acetaminophen (Tylenol) 975 mg PO NOW ONE Stop: 01/16/18 22:38 Last Admin: 01/16/18 22:39 Dose: 975 mg Sodium Chloride (Normal Saline 0.9%) 1,000 mls @ 1,000 mls/hr IV BOLUS ONE Stop: 01/16/18 17:01 Last Admin: 01/16/18 16:14 Dose: Sodium Chloride (Normal Saline 0.9%) 1,000 mls @ 1,000 mls/hr IV BOLUS ONE Stop: 01/16/18 18:11 Last Infusion: 01/16/18 18:47 Dose: 0 mls/hr Admin: 01/16/18 17:00 Dose: 1,000 mls/hr Sodium Chloride (Normal Saline 0.9%) 500 mls @ 1,000 mls/hr IV BOLUS ONE Stop: 01/16/18 22:05 Last Infusion: 01/17/18 00:39 Dose: 0 mls/hr Admin: 01/16/18 22:36 Dose: 1,000 mls/hr Vital Signs - 8 hr 01/17/18 01:23 Temperature 98.8 F Pulse Rate 101 H Respiratory Rate 16 Blood Pressure 113/54 L Pulse Oximetry 96 MDM - Weakness <Nasra Carreno MD - Last Filed: 01/17/18 07:49> Lab Data Result diagrams: 01/16/18 16:10 01/16/18 16:10 Lab Results 01/16/18 01/16/18 01/16/18 Range/Units 16:10 16:10 16:10 WBC 14.4 H (4.5-11.0) X10^3/uL RBC 5.62 (4.5-5.9) X10^6/uL Hgb 15.6 (13.5-17.5) g/dL Hct 45.7 (41-53) % MCV 81.4 (80-100) fL MCH 27.8 (26-34) PG MCHC 34.1 (30-36) % RDW 13.4 (11.6-14.8) % Plt Count 287 (150-400) X10^3/uL Neut % (Auto) 68.3 (50-75) % Lymph % (Auto) 21.8 L (25-40) % [place] % (Auto) 8.9 (3-14) % Eos % (Auto) 0.8 L (2-4) % Baso % (Auto) 0.2 (0-2) % Neut # (Auto) 9800 H (2765-8920) /uL D-Dimer (<231) ng/mL Sodium 140 (137-145) mmol/L Potassium 3.7 (3.4-5.1) mmol/L Chloride 104.0 (98-107) mmol/L Carbon Dioxide 22.0 (22-32) mmol/L BUN 16.0 (9-20) mg/dL Creatinine 0.60 L (0.66-1.25) mg/dL Estimated GFR > 60.0 (>60) mL/min BUN/Creatinine Ratio 26.7 H (6-22) Glucose 92 (70-100) mg/dL Lactate 0.7 (0.7-2.1) mmol/L Calcium 9.3 (8.4-10.2) mg/dL Magnesium 2.1 (1.6-2.3) mg/dL Total Bilirubin 0.4 (0.2-1.3) mg/dL AST 17 (17-59) IU/L ALT 42 (21-72) IU/L Alkaline Phosphatase 76 (38-126) U/L Total Creatine Kinase (55-170) U/L Total Protein 7.7 (6.3-8.2) g/dL Albumin 4.2 (3.5-5.0) g/dL Globulin 3.5 (1.7-4.1) g/dL Albumin/Globulin Ratio 1.2 (1.0-2.8) Urine Color Urine Appearance Urine pH (4.5-8.0) Ur Specific Bates (1.000-1.035) Urine Protein (Negative) Urine Glucose (UA) (Negative) g/dL Urine Ketones (NEGATIVE) Urine Occult Blood (Negative) Urine Nitrate (Negative) Urine Bilirubin (NEGATIVE) Urine Urobilinogen (0.2) E.U./dL Ur Leukocyte Esterase (NEGATIVE) Urine RBC (0-5/HPF) Urine WBC (0-5/HPF) Ur Squamous Epith Cells Urine Bacteria (None) Ur Culture Indicated? Micro UA Comment 01/16/18 01/16/18 01/16/18 Range/Units 16:10 20:55 21:49 WBC (4.5-11.0) X10^3/uL RBC (4.5-5.9) X10^6/uL Hgb (13.5-17.5) g/dL Hct (41-53) % MCV (80-100) fL MCH (26-34) PG MCHC (30-36) % RDW (11.6-14.8) % Plt Count (150-400) X10^3/uL Neut % (Auto) (50-75) % Lymph % (Auto) (25-40) % [place] % (Auto) (3-14) % Eos % (Auto) (2-4) % Baso % (Auto) (0-2) % Neut # (Auto) (7408-7142) /uL D-Dimer < 200 (<231) ng/mL Sodium (137-145) mmol/L Potassium (3.4-5.1) mmol/L Chloride (98-107) mmol/L Carbon Dioxide (22-32) mmol/L BUN (9-20) mg/dL Creatinine (0.66-1.25) mg/dL Estimated GFR (>60) mL/min BUN/Creatinine Ratio (6-22) Glucose (70-100) mg/dL Lactate (0.7-2.1) mmol/L Calcium (8.4-10.2) mg/dL Magnesium (1.6-2.3) mg/dL Total Bilirubin (0.2-1.3) mg/dL AST (17-59) IU/L ALT (21-72) IU/L Alkaline Phosphatase (38-126) U/L Total Creatine Kinase 65 (55-170) U/L Total Protein (6.3-8.2) g/dL Albumin (3.5-5.0) g/dL Globulin (1.7-4.1) g/dL Albumin/Globulin Ratio (1.0-2.8) Urine Color Yellow Urine Appearance Clear Urine pH 5.0 (4.5-8.0) Ur Specific [place] 1.025 (1.000-1.035) Urine Protein Negative (Negative) Urine Glucose (UA) Negative (Negative) g/dL Urine Ketones Trace H (NEGATIVE) Urine Occult Blood 3+ H (Negative) Urine Nitrate Negative (Negative) Urine Bilirubin Negative (NEGATIVE) Urine Urobilinogen 0.2 (0.2) E.U./dL Ur Leukocyte Esterase Negative (NEGATIVE) Urine RBC 10-30/hpf H (0-5/HPF) Urine WBC 0-1/hpf (0-5/HPF) Ur Squamous Epith Cells None seen Urine Bacteria None seen (None) Ur Culture Indicated? Not Reportable Micro UA Comment Not Reportable ECG Data Interpretation: Sinus Tachycardia HR [address]/Tw changes - Lead III No ectopy GA intervals WNL MDM Narrative Medical decision making narrative: CP patient with somewhat acute onset weakness. Tachycardic on evaluation. After 2L NS, patient HR 90s. Having difficulty making urine. May need additional hydration, may need morales. If symptoms do not significantly improve, may need abdominal imaging. <Deyanira Mosley, DO - Last Filed: 01/17/18 02:00> Lab Data Lab Results 01/16/18 01/16/18 01/16/18 Range/Units 16:10 16:10 16:10 WBC 14.4 H (4.5-11.0) X10^3/uL RBC 5.62 (4.5-5.9) X10^6/uL Hgb 15.6 (13.5-17.5) g/dL Hct 45.7 (41-53) % MCV 81.4 (80-100) fL MCH 27.8 (26-34) PG MCHC 34.1 (30-36) % RDW 13.4 (11.6-14.8) % Plt Count 287 (150-400) X10^3/uL Neut % (Auto) 68.3 (50-75) % Lymph % (Auto) 21.8 L (25-40) % [place] % (Auto) 8.9 (3-14) % Eos % (Auto) 0.8 L (2-4) % Baso % (Auto) 0.2 (0-2) % Neut # (Auto) 9800 H (8747-6417) /uL D-Dimer (<231) ng/mL Sodium 140 (137-145) mmol/L Potassium 3.7 (3.4-5.1) mmol/L Chloride 104.0 (98-107) mmol/L Carbon Dioxide 22.0 (22-32) mmol/L BUN 16.0 (9-20) mg/dL Creatinine 0.60 L (0.66-1.25) mg/dL Estimated GFR > 60.0 (>60) mL/min BUN/Creatinine Ratio 26.7 H (6-22) Glucose 92 (70-100) mg/dL Lactate 0.7 (0.7-2.1) mmol/L Calcium 9.3 (8.4-10.2) mg/dL Magnesium 2.1 (1.6-2.3) mg/dL Total Bilirubin 0.4 (0.2-1.3) mg/dL AST 17 (17-59) IU/L ALT 42 (21-72) IU/L Alkaline Phosphatase 76 (38-126) U/L Total Creatine Kinase (55-170) U/L Total Protein 7.7 (6.3-8.2) g/dL Albumin 4.2 (3.5-5.0) g/dL Globulin 3.5 (1.7-4.1) g/dL Albumin/Globulin Ratio 1.2 (1.0-2.8) Urine Color Urine Appearance Urine pH (4.5-8.0) Ur Specific [place] (1.000-1.035) Urine Protein (Negative) Urine Glucose (UA) (Negative) g/dL Urine Ketones (NEGATIVE) Urine Occult Blood (Negative) Urine Nitrate (Negative) Urine Bilirubin (NEGATIVE) Urine Urobilinogen (0.2) E.U./dL Ur Leukocyte Esterase (NEGATIVE) Urine RBC (0-5/HPF) Urine WBC (0-5/HPF) Ur Squamous Epith Cells Urine Bacteria (None) Ur Culture Indicated? Micro UA Comment 01/16/18 01/16/18 01/16/18 Range/Units 16:10 20:55 21:49 WBC (4.5-11.0) X10^3/uL RBC (4.5-5.9) X10^6/uL Hgb (13.5-17.5) g/dL Hct (41-53) % MCV (80-100) fL MCH (26-34) PG MCHC (30-36) % RDW (11.6-14.8) % Plt Count (150-400) X10^3/uL Neut % (Auto) (50-75) % Lymph % (Auto) (25-40) % [place] % (Auto) (3-14) % Eos % (Auto) (2-4) % Baso % (Auto) (0-2) % Neut # (Auto) (9515-1509) /uL D-Dimer < 200 (<231) ng/mL Sodium (137-145) mmol/L Potassium (3.4-5.1) mmol/L Chloride (98-107) mmol/L Carbon Dioxide (22-32) mmol/L BUN (9-20) mg/dL Creatinine (0.66-1.25) mg/dL Estimated GFR (>60) mL/min BUN/Creatinine Ratio (6-22) Glucose (70-100) mg/dL Lactate (0.7-2.1) mmol/L Calcium (8.4-10.2) mg/dL Magnesium (1.6-2.3) mg/dL Total Bilirubin (0.2-1.3) mg/dL AST (17-59) IU/L ALT (21-72) IU/L Alkaline Phosphatase (38-126) U/L Total Creatine Kinase 65 (55-170) U/L Total Protein (6.3-8.2) g/dL Albumin (3.5-5.0) g/dL Globulin (1.7-4.1) g/dL Albumin/Globulin Ratio (1.0-2.8) Urine Color Yellow Urine Appearance Clear Urine pH 5.0 (4.5-8.0) Ur Specific [place] 1.025 (1.000-1.035) Urine Protein Negative (Negative) Urine Glucose (UA) Negative (Negative) g/dL Urine Ketones Trace H (NEGATIVE) Urine Occult Blood 3+ H (Negative) Urine Nitrate Negative (Negative) Urine Bilirubin Negative (NEGATIVE) Urine Urobilinogen 0.2 (0.2) E.U./dL Ur Leukocyte Esterase Negative (NEGATIVE) Urine RBC 10-30/hpf H (0-5/HPF) Urine WBC 0-1/hpf (0-5/HPF) Ur Squamous Epith Cells None seen Urine Bacteria None seen (None) Ur Culture Indicated? Not Reportable Micro UA Comment Not Reportable Imaging Data CT scan - abdomen: Radiologist's impression: shift manager report: No acute findings identified. Morales catheter is present. MDM Narrative Medical decision making narrative: Patient has not been able to urinate with 400cc in his bladder. A Morales catheter was placed. Her urine does appear quite dark. He remains weak. I personally stood by his bedside all he attempted to stand and bear weight with a walker and assistance. Is on able to get himself up. He does not have a lot of mobility but is able to generally walk and help get around. He has mild leukocytosis was blood in his urine but no sign of infection. Lactic acid is normal. No sign of rhabdomyolysis. No history of trauma. According the nurses while the Morales catheter was placed he did move his legs some he has good sensation bilaterally peripheral pulses are intact. I have spoken with Dr. Pollock in regards to on admitting. She agrees to observation. Will continue IV fluids. Discharge Plan Departure Patient Disposition: Admitted as Observation Discharge Date/Time: 01/17/18 00:50 Interventions: ED Discharge Assessment Last Done: 01/16/18 23:35 Admit Date/Time: 01/16/18 23:33 Admit Provider: Loida Pollock <Deyanira Mosley DO - Last Filed: 01/17/18 02:00> Sign Out Provider Sign Out Attestation: Patient signed out to me at shift change. I have seen evaluated patient myself. Awaiting urination. She is tolerating oral fluids he has had 2 L of IV fluids. He says he is feeling little bit better.
--- NOTE | 2018-01-16 16:03 | PC.NURSE ---
reported by ems,. pt in the bathroom , usually ambulate uses wall for assistance, 2 hours ago, pt in the bathroom had to crawl to get help. on arrival pt alert and awake, unable to move, required 3-4 staff to move pt. reports, fall a week ago, reports, intermittent headache for 3-4 days.
--- NOTE | 2018-01-16 16:15 | PC.NURSE ---
noted pt able to move lower legs , but when asked, pt unable . dr yu made aware. parents at .
--- NOTE | 2018-01-16 16:16 | PC.NURSE ---
by fang roymedical laboratory scientist
[2018-01-16 16:28] LABS: Lactate (Lactic Acid) 0.7 mmol/L (0.7-2.1)
[2018-01-16 16:30] LABS: Alanine Aminotransferase 42 IU/L (21-72); Albumin 4.2 g/dL (3.5-5.0); Albumin Globulin Ratio 1.2 (1.0-2.8); Alkaline Phosphatase 76 U/L (38-126); Aspartate Aminotransferase 17 IU/L (17-59); BUN Creatinine Ratio 26.7 (6-22); Bilirubin Total 0.4 mg/dL (0.2-1.3); Calcium 9.3 mg/dL (8.4-10.2); D Dimer < 200 ng/mL (<231); Estimated Glomerular Filt Rate > 60.0 mL/min (>60); Globulin 3.5 g/dL (1.7-4.1); Glucose 92 mg/dL (70-100); HEMOLYSIS < 15 (0-50); Magnesium 2.1 mg/dL (1.6-2.3); Potassium 3.7 mmol/L (3.4-5.1); Sodium 140 mmol/L (137-145); Total Protein 7.7 g/dL (6.3-8.2)
[2018-01-16 16:43] LABS: Add Manual Diff / Slide Review NO; Basophils Percent Auto 0.2 % (0-2); Eosinophils Percent Auto 0.8 % (2-4); Hematocrit 45.7 % (41-53); Hemoglobin 15.6 g/dL (13.5-17.5); Lymphocytes Percent Auto 21.8 % (25-40); Mean Corpuscular HGB Conc 34.1 % (30-36); Mean Corpuscular Hemoglobin 27.8 PG (26-34); Mean Corpuscular Volume 81.4 fL (80-100); Monocytes Percent Auto 8.9 % (3-14); Neutrophils Absolute Auto 9800 /uL (3000-5900); Neutrophils Percent Auto 68.3 % (50-75); Platelet Count 287 X10^3/uL (150-400); Red Blood Cell Count 5.62 X10^6/uL (4.5-5.9); Red Cell Distribution Width 13.4 % (11.6-14.8); White Blood Cell Count 14.4 X10^3/uL (4.5-11.0)
--- NOTE | 2018-01-16 16:57 | PC.NURSE ---
mother reports, pt recieved his routine meds baclofen 20mg, approved by dr yu.
[2018-01-16] MEDS: SODIUM CHLORIDE 0.9% 1,000 ML 1000 ML IV (17:00)
--- NOTE | 2018-01-16 18:39 | PC.NURSE ---
pt condition improved, pt able to move all ext at this time, still unable to get out of bed at this time, requesting food. family at bs.
--- NOTE | 2018-01-16 18:56 | PC.NURSE ---
sandwich, cheese,yogurt, crackers provided.
--- NOTE | 2018-01-16 19:08 | PC.NURSE ---
pt condition improved, increase in movement in all ext. pt able to sit up with minimal assist and now eating and drinking. pt aware , still needing urine samples. dr woods aware.
[2018-01-16 21:05] LABS: Bacteria Urine None Seen
[2018-01-16 21:08] LABS: Appearance Urine UA CLEAR; Bilirubin Urine UA NEGATIVE (NEGATIVE); Color Urine UA YELLOW; Glucose Urine UA NEGATIVE (Negative); Ketones Urine UA TRACE (NEGATIVE); Leukocyte Esterase Urine UA NEGATIVE (NEGATIVE); Nitrite Urine UA Negative (Negative); Occult Blood Urine UA 3+ (Negative); Protein Urine UA NEGATIVE (Negative); Specific Gravity Urine UA 1.025 (1.000-1.035); Urobilinogen Urine UA 0.2 E.U./dL (0.2)
[2018-01-16 21:17] LABS: RBC Urine 10-30/HPF (0-5/HPF); Squamous Epithelial Cell Urine None Seen; WBC Urine 0-1/HPF (0-5/HPF)
--- NOTE | 2018-01-16 21:36 | DI.CT.S_ITS ---
PROCEDURE: CT ABDOMEN PELVIS W CON INDICATIONS: ab pain, weakness, TECHNIQUE: After the administration of intravenous contrast, 5 mm thick sections acquired from the diaphragm to the symphysis. 5 mm coronal and sagittal reformats were acquired. For radiation dose reduction, the following was used: automated exposure control, adjustment of mA and/or kV according to patient size. COMPARISON: [facility], CT, CT ABDOMEN PELVIS W CON, 01/01/2018, 13:50. FINDINGS: Preliminary report by shift boss radiology Image quality: Excellent. ABDOMEN: Lung bases: Lung bases are clear. Heart size is normal. Solid organs: Liver is prominent in size and again shows fatty infiltration. Gallbladder appears contracted. Biliary system is non dilated. Pancreas enhances normally. Spleen is normal in size and enhancement. No adrenal nodules. Kidneys demonstrate normal size and enhancement, without hydronephrosis. Peritoneum and bowel: Bowel loops demonstrate normal wall thickness and caliber. Normal appendix. No free fluid or air. Nodes and vessels: No retroperitoneal or mesenteric adenopathy by size criteria. Aorta and inferior vena cava are normal in size. Miscellaneous: No ventral hernias. PELVIS: Genitourinary: Bladder is collapsed around a Aquino catheter Miscellaneous: Small fat filled left inguinal hernias, no adenopathy. Bones: No suspicious bony lesions. Levoconvex scoliosis. No vertebral body compression fractures. IMPRESSION: 1. No acute findings. Source of abdomen pain not seen. 2. Mild hepatomegaly and steatosis. 3. Gallbladder is contracted. 4. Urinary bladder is collapsed around a Aquino catheter. Findings are concordant with the preliminary report. Dictated by: Fred Navarro M.D. on 01/17/2018 at 8:00 Approved by: Fred Navarro M.D. on 01/17/2018 at 8:06
[2018-01-16 22:06] LABS: Creatine Kinase 65 U/L (55-170)
[2018-01-16] MEDS: SODIUM CHLORIDE 0.9% 500 ML 1000 ML IV (22:36)
[2018-01-16] MEDS: ACETAMINOPHEN 325 MG TABLET 975 MG PO (22:39)
--- NOTE | 2018-01-17 | DI.MRI.S_ITS ---
PROCEDURE: MR HEAD/BRAIN WO CON INDICATIONS: sudden onset of weakness TECHNIQUE: Noncontrast axial T1 spin echo, axial T2 fast spin echo, sagittal and axial FLAIR, coronal T2 fast spin echo, axial gradient echo, axial diffusion and ADC through the brain. COMPARISON: None. FINDINGS: Image quality: There is magnetic simply artifact anteriorly likely related to patient's dental hardware. CSF Spaces: Basal cisterns are patent. No extra-axial fluid collections. There is mild cerebral volume loss with prominence of the ventricles and sulci. Brain: No definite intracranial hemorrhage or mass effect. No intra-axial mass lesions. Cosme/white matter interface appears preserved. Brainstem appears normal. Diffusion-weighted images demonstrate no acute infarcts. There are periventricular white matter areas of T2 hyperintensity suggestive of mild chronic small vessel ischemic changes. Normal intravascular flow voids are present. Skull and face: Calvarium has normal marrow signal. Orbits appear normal. Sinuses: There is a lobulated T1 hypointense and T2 hyperintense ovoid mass lesion within the left sphenoid sinus measuring approximately 2.8 x 2.5 cm in transverse dimension and 2.8 cm in craniocaudal dimension. There is an associated expansile appearance of the adjacent bony structures without definite bony destruction. There is adjacent fluid within the left sphenoid sinus which demonstrates isointense signal on T2 and hyperintense signal on T1 suggestive of hemorrhagic or pertinacious components. There is mild mucosal thickening also demonstrated within the left maxillary sinus. IMPRESSION: 1. No evidence of infarct or other definite acute intracranial abnormality. 2. Lobulated mass lesion in the left sphenoid sinus with associated bony expansion suggestive of a nonaggressive process. The findings may represent a mucocele or sinus retention cysts. A neoplasm is less likely but cannot be excluded. Recommend further evaluation with intravenous contrast when clinically feasible. 3. Adjacent fluid within the left sphenoid sinus demonstrating axial to slightly hyperintense T2 signal and T1 hyperintensity is suggestive of blood product or proteinaceous content. 4. Mild periventricular white matter T2 hyperintensity suggestive of mild chronic white matter small vessel ischemic changes. Dictated by: Christopher Fair M.D. on 01/17/2018 at 14:01 Approved by: Christopher Fair M.D. on 01/17/2018 at 14:08
--- NOTE | 2018-01-17 00:22 | PC.NURSE ---
Called upstairs to Sri HOLGUIN to see if she was ready for the pt to come upstairs. RN in a room,ACCOUNTING METHODS ANALYST will let her know and have her call back.
[2018-01-17 01:23] VITALS: BP 113/54; PULSE 101; RESP 16; TEMP 37.1; O2SAT 96
[2018-01-17] MEDS: SODIUM CHLORIDE 0.9% 1,000 ML 125 ML IV ×3 (01:45→19:14)
[2018-01-17 02:12] VITALS: BMI 39.5
[2018-01-17 02:46] VITALS: BMI 39.5
[2018-01-17] MEDS: HYDROCODONE/ACET 5/325 TABLET 1 TAB PO ×2 (04:05→09:42)
[2018-01-17] MEDS: BACLOFEN 10 MG TABLET 20 MG PO ×5 (04:06→21:23)
[2018-01-17] MEDS: HYDROCODONE/ACET 5/325 TABLET 2 TAB PO ×3 (05:31→18:09)
--- NOTE | 2018-01-17 06:25 | PC.NURSE ---
pt admitted to rm 226 at aprx 0130 via stretcher, 4 assist using sliding board to transfer to bed. pt has cerebral palsy but is normally to do own care,walk short distances holding on to furnature; indep w/wc mobility, and feeding self. currently pt is to weak to reposition self in bed, or ambulate, needs assist w/eating and holding cup to drink. he is alert, oriented, able to make his needs known,call light use explained and positioned w/i reach. pt has limited vision for reading- he needs to have item close to his eyes to read, mom states he can write but not real legible. suffers from chronic all over pain and muscle spasms. able to swallow pills one at a time w/water best to break large tabs in half. pt assisted w/snack after admitted, no swallow problem noted. parents brought in home meds, recieved telephone order to continue per home routine.
[2018-01-17 08:11] VITALS: BP 131/67; PULSE 89; RESP 16; TEMP 36.6; O2SAT 98
[2018-01-17] MEDS: METHOCARBAMOL 500 MG TABLET PO (09:42)
--- NOTE | 2018-01-17 11:47 | P.HP_ITS ---
History of Present Illness Chief complaint: WEAKNESS Narrative: Miguel Angel Myers is a 32 year old male with cerebral palsy who presented to the [facility] Emergency room last night for weakness. He has cerebral palsy. He usually is able to ambulate short distances by holding onto obrien and furniture years. His parents noticed that he was not able to ambulate to the bathroom. He also had difficulty getting off the toilet with assistance. He had difficulty transfer into the wheelchair as well. He has been having cough for about a week. He also complains of anterior chest pain intermittently. The pain comes and goes. He had night sweats last night. His chest x-ray did not reveal pneumonia. Abdominal CT scan also did not reveal any intra-abdominal cause of his weakness. He was admitted to the medicine floor for observation. Patient History Medical History Other acquired deformity of other parts of limb (Acute) Asthma (Acute) Cerebral palsy (Acute) Surgical History Status post osteotomy (Acute) Comment: Cerebral palsy Muscle lengthening at age 3 Bilateral hip osteotomy at age 13 Hardware removal, 2001 Family & Social History Family History: Reviewed 01/16/18 by Nasra Carreno MD Household members: family lives independently: No caregiver/support person: Yes other: His parents are his caregivers. No alcohol drinking or cigarette smoking. Tobacco & Substance Use Smoking Status: Never smoker Additional Social History Additional social history: He usually ambulates by holding onto obrien and furniture is for short distances inside his home. Meds Home Medications Medication Instructions Recorded Confirmed Type Vitamin C 1 tab PO QDAY 01/01/18 01/16/18 History Vitamin D3 1 tab PO QDAY 01/01/18 01/16/18 History baclofen 20 mg PO QID PRN MDD 4 01/01/18 01/16/18 History hydrocodone-acetaminophen 1 - 2 tab PO Q4-6H PRN MDD 6 01/01/18 01/16/18 History cyclobenzaprine 1 - 2 tab PO QHS PRN 01/16/18 01/16/18 History methocarbamol 1 tab PO BID PRN 01/16/18 01/16/18 History nortriptyline 20 mg PO 4-6XD 01/16/18 01/16/18 History Allergies Allergy/AdvReac Type Severity Reaction Status Date / Time gabapentin Allergy Unknown Verified 01/16/18 15:53 ibuprofen [From Motrin] Allergy Unknown Verified 01/16/18 15:53 Review of Systems Constitutional Constitutional: Reports night sweats and Reports weakness Cardiovascular Comments: Intermittent chest pain Respiratory Comments: He has been having cough for about a week Gastrointestinal Comments: Chronic constipation Musculoskeletal Musculoskeletal: Reports muscle weakness Neurologic Neurologic: Reports abnormal movements and Reports weakness Exam Vital Signs (past 8 hours): Vital Signs - 8 hr 3 01/17/18 08:11 Temperature 97.8 F Pulse Rate 89 Respiratory Rate 16 Blood Pressure 131/67 H Pulse Oximetry 98 Pulse Oximetry 98 Oxygen Delivery Method Room Air Narrative Exam Narrative: GENERAL: Well-appearing, well-nourished and in no acute distress. HEENT: Head normocephalic, atraumatic. Eyes pupils equal round NECK: Supple, no JVD, CHEST: Breath sounds equal bilaterally, no wheezes rales or rhonchi. CARDIAC: Regular rate and rhythm without murmurs, rubs or gallops. ABDOMEN: Soft, nontender. Normoactive bowel sounds all 4 quadrants. No guarding or rebound. EXTREMITIES: no pitting edema. significant muscle atrophy in lower extremities. NEUROLOGICAL: Alert and oriented; weakness in bilateral lower extremity. SKIN: Warm, dry, no petechiae, no rashes or lesions. Objective Imaging Chest x-ray: Radiologist's impression: No acute cardiopulmonary disease process. CT scan - abdomen: Radiologist's impression: 1. No acute findings. Source of abdomen pain not seen. 2. Mild hepatomegaly and steatosis. 3. Gallbladder is contracted. 4. Urinary bladder is collapsed around a Aquino catheter. Labs Result Diagrams: 01/16/18 16:10 01/16/18 16:10 Labs: Laboratory Results - last 24 hr 01/16/18 01/16/18 01/16/18 16:10 16:10 16:10 WBC 14.4 H RBC 5.62 Hgb 15.6 Hct 45.7 MCV 81.4 MCH 27.8 MCHC 34.1 RDW 13.4 Plt Count 287 Neut % (Auto) 68.3 Lymph % (Auto) 21.8 L [place] % (Auto) 8.9 Eos % (Auto) 0.8 L Baso % (Auto) 0.2 Neut # (Auto) 9800 H D-Dimer Sodium 140 Potassium 3.7 Chloride 104.0 Carbon Dioxide 22.0 BUN 16.0 Creatinine 0.60 L Estimated GFR > 60.0 BUN/Creatinine Ratio 26.7 H Glucose 92 Lactate 0.7 Calcium 9.3 Magnesium 2.1 Total Bilirubin 0.4 AST 17 ALT 42 Alkaline Phosphatase 76 Total Creatine Kinase Total Protein 7.7 Albumin 4.2 Globulin 3.5 Albumin/Globulin Ratio 1.2 Urine Color Urine Appearance Urine pH Ur Specific [place] Urine Protein Urine Glucose (UA) Urine Ketones Urine Occult Blood Urine Nitrate Urine Bilirubin Urine Urobilinogen Ur Leukocyte Esterase Urine RBC Urine WBC Ur Squamous Epith Cells Urine Bacteria Ur Culture Indicated? Micro UA Comment 01/16/18 01/16/18 01/16/18 16:10 20:55 21:49 WBC RBC Hgb Hct MCV MCH MCHC RDW Plt Count Neut % (Auto) Lymph % (Auto) [place] % (Auto) Eos % (Auto) Baso % (Auto) Neut # (Auto) D-Dimer < 200 Sodium Potassium Chloride Carbon Dioxide BUN Creatinine Estimated GFR BUN/Creatinine Ratio Glucose Lactate Calcium Magnesium Total Bilirubin AST ALT Alkaline Phosphatase Total Creatine Kinase 65 Total Protein Albumin Globulin Albumin/Globulin Ratio Urine Color Yellow Urine Appearance Clear Urine pH 5.0 Ur Specific [place] 1.025 Urine Protein Negative Urine Glucose (UA) Negative Urine Ketones Trace H Urine Occult Blood 3+ H Urine Nitrate Negative Urine Bilirubin Negative Urine Urobilinogen 0.2 Ur Leukocyte Esterase Negative Urine RBC 10-30/hpf H Urine WBC 0-1/hpf Ur Squamous Epith Cells None seen Urine Bacteria None seen Ur Culture Indicated? Not Reportable Micro UA Comment Not Reportable Assessment & Plan Plan: Plan: 1. Weakness: Etiology is unclear. No source of infection was found on laboratory tests. He is on several muscle relaxants as outpatient. His parents has indicated that Flexeril was added to the regimen about a week ago. We will discontinue Flexeril. We will do a brain MRI to rule out intracranial lesions that could be causing his symptoms. We will also check thyroid function and vitamin B12 levels. Start PT OT evaluation and treatment 2. Cerebral palsy: Continue outpatient medication. Hold Flexeril. 3. Possible dehydration: He received IV hydration overnight. Discontinue IV fluid.
[2018-01-17 12:07] VITALS: BP 120/66; PULSE 77; RESP 16; TEMP 36.4; O2SAT 98
[2018-01-17] MEDS: ALPRAZolam 0.5 MG TABLET PO (13:07)
--- NOTE | 2018-01-17 13:29 | PC.NURSE ---
MRI ORDERED. PT REPORTS HE IS CLAUSTROPHOBIC. NOTIFIED. XANAX GIVEN PRIOR TO MRI. PT OFF UNIT FOR MRI AT APPROX [id number].
--- NOTE | 2018-01-17 14:04 | PT.IPNOTE ---
PHYSICAL THERAPY UPDATE 01/17/18 @ 1239 Pt is getting ready to go to an MRI. Will attempt PT evaluation when pt returns.
[2018-01-17 15:00] VITALS: BP 139/73; PULSE 90; RESP 16; TEMP 36.6; O2SAT 99
--- NOTE | 2018-01-17 16:43 | CM.DANOTE ---
DCP Assessment: Spoke w/pt's mom and dad at bedside this afternoon, Angela and Jamaal. Pt had just come back from an MRI and stated his head hurt badly, RN aware. Pt obs status after presenting to the ER w/a sudden loss of strength and severe weakness in his arms and legs. Pt dx w/cerebral palsy when he was [age] year old. Pt lives w/his parents, dad works time checker in electronics and mom works cloud engagement partner for the [employer]. Pt can do most ADLs indp. His mom explains he requires a shower chair to be set up in bathtub but he can complete his showering/grooming on his own. Pt also needs assist w/fixing meals. Pt wall surfs d/t his unsteadiness and has a route in the house he uses (w/o AD) to get from bedroom to kitchen etc using obrien, chairs, furniture. Mom explains he does well, until this loss of strength, but she and her still do not like to leave hims alone in the house for long. Pt on SSI, no SSD. He has no cgs, is on Medicaid but parents are not. Pt states he would like resources to get cgs for some respite for his parents, and pt's mom agrees that it would be nice to go away for the w/e once in awhile and know that pt remained safe. F/u needed: results of MRI unknown to this ELEMENTARY SPECIAL EDUCATION TEACHER at time of this note. Pt/family would appreciate any information about cg resources. Pt has Medicaid although pt/family make no mention of any cg resources being offered to them or disability benefits being explored ? Pt has never worked. Pt has no h/o HH or SNF and pt/family hesitant when this ELEMENTARY SPECIAL EDUCATION TEACHER asks if pt would consider SNF if mobility doesn't dramatically improve? PT/OT eval pending today, if not, order needs to be placed. Follow closely. GEN Ackerman
[2018-01-17 20:20] VITALS: BP 111/54; PULSE 68; RESP 18; TEMP 35.9; O2SAT 99
--- NOTE | 2018-01-18 | DI.MRI.S_ITS ---
PROCEDURE: MR LUMBAR SPINE WO CON INDICATIONS: Sudden onset of bilateral LE weakness TECHNIQUE: Noncontrast sagittal T1 spin echo and T2 fast echo, sagittal STIR, axial T1 and T2 fast spin echo through the lumbar spine. In cases with scoliosis, additional coronal T2 fast spin echo may be performed. COMPARISON: [facility], MR, MR HEAD/BRAIN WO CON, 01/17/2018, 13:16. [facility], CT, CT ABDOMEN PELVIS W CON, 01/16/2018, 21:38. FINDINGS: Image quality: Excellent. Alignment and Curvature: There is mildly levoscoliotic bony alignment. Bone Marrow: Marrow is of normal overall signal. No acute vertebral body compression fractures. Spinal Cord: Conus medullaris terminates at the L1 level. Visualized cord demonstrates normal signal and size. Paraspinous Soft Tissues: No paravertebral masses. IMPRESSION: No trauma found, no mass lesion identified. Mild convex leftward scoliosis. Source of reported sudden onset of bilateral lower extremity weakness is not seen. Findings were called at time of this dictation to the hospitalist caring for the patient. Dictated by: Chris Culp M.D. on 01/19/2018 at 10:51 Approved by: Chris Culp M.D. on 01/19/2018 at 11:01
[2018-01-18 00:11] VITALS: BP 100/60; PULSE 68; RESP 18; TEMP 36.9; O2SAT 98
[2018-01-18] MEDS: HYDROCODONE/ACET 5/325 TABLET 1 TAB PO ×2 (03:17→19:54)
[2018-01-18] MEDS: SODIUM CHLORIDE 0.9% 1,000 ML 125 ML IV ×2 (03:26→11:35)
[2018-01-18 05:45] VITALS: BP 135/85; PULSE 70; RESP 18; TEMP 36.2; O2SAT 97
[2018-01-18 07:25] VITALS: BP 118/60; PULSE 75; RESP 16; TEMP 36.6; O2SAT 98
[2018-01-18] MEDS: BACLOFEN 10 MG TABLET 20 MG PO ×3 (09:30→19:52)
[2018-01-18] MEDS: HYDROCODONE/ACET 5/325 TABLET 2 TAB PO ×2 (09:30→15:50)
[2018-01-18 12:00] VITALS: BP 130/75; PULSE 90; RESP 16; TEMP 36.6; O2SAT 99
--- NOTE | 2018-01-18 12:20 | PT.IIE ---
Physical Therapy Inpatient Evaluation/Re-Eval M1 PT/OT-IP Prior Functional Status Start: 01/17/18 14:49 Freq: NEEDED Status: Active Protocol: Document 01/18/18 10:40 RCC (Rec: 01/18/18 12:20 [facility] [id number]) Medical Review Prior Functional Status Medical History Reviewed Yes Mobility and Gait Mod. indep. gait indoors for 30-40 ft furniture surfing to living room and BR. Manual w/c for longer distances and outdoors. Activities of Daily Living and IADL's Some assistance with ADLs, but mother reports pt could feed himself and likes to be as indep. as possible. Social History Household Members family Living Arrangements House Number of Stairs To Enter/Railing? 0 Home Equipment Manual Wheelchair M2 PT-IP Current Condition Start: 01/17/18 12:43 Freq: NEEDED Status: Active Protocol: Document 01/18/18 10:40 RCC (Rec: 01/18/18 12:20 [facility] [id number]) Physical Therapy Current Condition Current Condition Evaluation Date 01/18/18 Treatment Diagnosis Weakness, impaired mobility Onset Date 01/16/18 M3 PT-IP Subjective Start: 01/17/18 12:43 Freq: NEEDED Status: Active Protocol: Document 01/18/18 10:40 RCC (Rec: 01/18/18 12:20 [facility] [id number]) Subjective Physical Therapy Visit Type Type Initial Evaluation Visit Start Time 10:00 Visit Stop Time 10:40 Total Visit Minutes 40 Number of DISPATCH MANAGER Visits 0 Physical Therapy Visit Comments Patient Comments pt reports his sensation is impaired in the BLEs (feet and lower legs). He does note that normally he has normal sesation. Also admits to impaired sensation in the saddle region, which is not common. He does not feel like he can stand, he is scared that something very serious is going on. Therapy Pain Assessment Pain When Pain Assessed At Rest Location Bilateral Back Description Aching Tightness Pain Behaviors Facial Grimacing M4 PT-IP Mobility and Gait Start: 01/17/18 12:43 Freq: NEEDED Status: Active Protocol: Document 01/18/18 10:40 RCC (Rec: 01/18/18 12:20 [facility] [id number]) PT-Bed Mobility Assessment Rolling Type of Rolling Log Rolling Level of Assist Maximal Assistance 2 Person Assistance Supine to Sit Supine to Sit Maximum Assistance 2 Person Assistance Sit to Supine Sit to Supine Maximum Assistance 2 Person Assistance Scooting Scooting to Edge of Bed Maximum Assistance PT-Transfer Assessment Comments Mobility Comments not safe to transfer. Gait Assessment Comments Gait Comments unable @ this time. PT-Balance Assessment Sitting Balance and Reactions Static Sitting Balance Ability Fair Dynamic Sitting Balance Ability Poor Comments Other Balance Tests/Deviations/Treatment Pt requires UE support to : maintain balance, able to drink water with R hand but increased assistance of LUE on bed. M5 PT-IP Objective Assessments Start: 01/17/18 12:43 Freq: NEEDED Status: Active Protocol: Document 01/18/18 10:40 RCC (Rec: 01/18/18 12:20 [facility] [id number]) Orientation Orientation/Cognition Level of Alertness Alert Gross Range of Motion Lower Extremity ROM Assessment Bilaterally Impaired Impairments limited ankle DF d/t increased tone Strength Lower Extremity Strength Assessment Bilaterally Impaired Hip flexion (bilateral) 1/5 Knee extension (bilateral) 1/5, flexion 2-/5 Ankle DF (bilateral) 0/5, PF 1/5 Comments Strength Comments significant LE weakness with formal MMT Unable to move toes Coordination Assessment Gross Coordination Gross Coordination Impaired Sensation Assessment Sensation Gross Sensation Right LE Impaired Left LE Impaired Light Touch Impaired Sensation Description Numbness Heaviness Muscle Tone Muscle Tone WNL No Comments Muscle Tone Comments General LE tone (knee flexion, ankle PF) M6 PT-IP Treatment Start: 01/17/18 12:43 Freq: NEEDED Status: Active Protocol: Document 01/18/18 10:40 RCC (Rec: 01/18/18 12:20 [facility] [id number]) Physical Therapy Treatment Education Post-Op Education Precautions Safety M7 PT-IP Assessment and Plan Start: 01/17/18 12:43 Freq: NEEDED Status: Active Protocol: Document 01/18/18 10:40 RCC (Rec: 01/18/18 12:20 [facility] [id number]) PT Summary Assessment and Plan Potential Rehabilitation Potential Fair Status of Condition at Evaluation Unstable Summary Impairments Pain ROM Strength Balance Sensation Bed Mobility Transfers Gait Activity Tolerance Progress Towards Goals Slow Progress due to Pain Slow Progress due to Medical Issues Slow Progress due to Activity Tolerance Assessment Summary Pt presents with a significant decrease in his function and mobility, with signs of impaired sensation of the LE and in the groin/saddle region . Pt with general LE weakness, unable to move against gravity with any of isolated muscles with manual muscle testing. Pt requires heavy assistance of 2 persons to mobilize in bed, and difficulty maintaining his sitting balance. Pt is not safe to transfer or stand at this time due to such poor sitting balance. It may be beneficial to examine pt's low back on imaging (MRI) given his LE sensation, strength changes, particularly with saddle numbness. Goals Bed Mobility Goal Standby Assistance Transfer Goal Standby Assistance Gait Goal Contact Guard Assistance Gait Distance 30 Days to Meet Goals 3 Frequency of Treatment Frequency Of Treatment Twice a Day Treatment Plan Physical Therapy Treatment Plan Bed Mobility Training Transfer Training Gait Training Therapeutic Exercise Balance Retraining Discharge Planning Neuromuscular Re-ed Other Recommendations and Next Treatment sit<->stand, gait if able. Focus Recommendations To Nursing Amount of Assist Needed PT/OT Assist Only Mechnical Lift Discharge Recommendations PT Discharge Recommendations SNF Rehab Visit Care Team Role Provider Type Santiago Reeder PA-C Family Provider Advanced Practioner Clinician Primary Care Provider Deyanira Mosley DO Emergency Provider Physician Loida Pollock MD Admit Provider Physician Attending Provider Other Providers Medical History (Last Updated 01/17/18 @ 02:20 by Ninoska Cruz RN) Other acquired deformity of other parts of limb (Acute) Asthma (Acute) Cerebral palsy (Acute) Surgical History (Last Updated 01/17/18 @ 02:20 by Ninoska Cruz RN) Status post osteotomy (Acute)
--- NOTE | 2018-01-18 13:25 | CM.DPC ---
DCP Cont: Per PT/OT, pt has loss of sensation and below his baseline and currently requiring 2 person max assist for transfers and ambulation and currently recommending SNF rehab at d/c before safe return home. Pt currently OBS STATUS which would be a barrier to SNF rehab but waiting for UR to review to determine if pt meets criteria for Inpt Status. SW met bedside with pt and parents and explained role and they confirm that pt is not safe to d/c home today and waiting for possible medical explanation for pt's decrease in mobility and independence and feeling. SW provided the resources for Private Pay Caregivers, Senior Resource Guidebook, and Medicaid ADOLPH application to determine if pt meets criteria for in-home caregiver through Medicaid. SW discussed the importance of beginning to place calls and research private pay caregivers right away if they are interested since it can take a while to get caregiver set up in the home. Family and pt very appreciative of the resources. SW did not address SNF rehab at this time until UR has a chance to review to see if pt meets Inpt Status. Plan: SW to follow for UR review to determine if pt meets Inpt Status towards possible SNF rehab at d/c. SW to follow for further PT/OT assessment and pt progress towards possible SNF vs home with private pay caregiver if family can get this set up by d/c. GEN Suarez
--- NOTE | 2018-01-18 13:52 | P.PN_ITS ---
Subjective Date Patient Seen: 01/18/18 Interval history: Patient continued to have weakness. Denies other discomfort. Exam Vital Signs (past 8 hours): Vital Signs - 8 hr 3 01/18/18 07:25 Temperature 97.9 F Pulse Rate 75 Respiratory Rate 16 Blood Pressure 118/60 Pulse Oximetry 98 Pulse Oximetry 98 Oxygen Delivery Method Room Air Oxygen Flow Rate 0 Narrative Exam Narrative: GENERAL: Well-appearing, well-nourished and in no acute distress. HEENT: Head normocephalic, atraumatic. Eyes pupils equal round NECK: Supple, no JVD, CHEST: Breath sounds equal bilaterally, no wheezes rales or rhonchi. CARDIAC: Regular rate and rhythm without murmurs, rubs or gallops. ABDOMEN: Soft, nontender. Normoactive bowel sounds all 4 quadrants. No guarding or rebound. EXTREMITIES: no pitting edema. significant muscle atrophy in lower extremities. NEUROLOGICAL: Alert and oriented; weakness in bilateral lower extremity. SKIN: Warm, dry, no petechiae, no rashes or lesions Objective Labs Result Diagrams: 01/16/18 16:10 01/16/18 16:10 Assessment & Plan Plan: Plan: Flexeril was discontinued on January 17, 2018.1. Weakness: Etiology is unclear. No source of infection was found on laboratory tests. He is on several muscle relaxants as outpatient. His parents has indicated that Flexeril was added to the regimen about a week ago. Flexeril was discontinued on January 17, 2018. He has not had clinical improvement in the past 24 hr. Brain MRI did not reveal intracranial lesions that could be causing his symptoms. We will also check thyroid function and vitamin B12 levels. Continue PT OT evaluation and treatment. We will do a lumbar spine MRI to evaluate for possible lesions in the lumbar spine that could be causing bilateral lower extremity weakness. 2. Cerebral palsy: Continue outpatient medication. Flexeril was discontinued. We will try decreasing baclofen from 20 mg 4 times a day to 3 times a day to see if it helps with his weakness.. 3. Possible dehydration: Resolved. IV fluid was discontinued.
--- NOTE | 2018-01-18 13:54 | OT.IP.EVAL ---
Past Medical History (Last Updated 01/17/18 @ 02:20 by Ninoska Cruz, RN) Other acquired deformity of other parts of limb (Acute) Asthma (Acute) Cerebral palsy (Acute) Surgical History (Last Updated 01/17/18 @ 02:20 by Ninoska Cruz, RN) Status post osteotomy (Acute) Occupational Therapy Inpatient Evaluation/Re-Eval M1 PT/OT-IP Prior Functional Status Start: 01/17/18 14:49 Freq: NEEDED Status: Active Protocol: Document 01/18/18 13:35 ADH (Rec: 01/18/18 13:54 ADH [id number]) Medical Review Prior Functional Status Medical History Reviewed Yes Mobility and Gait Mod. indep. gait indoors for 30-40 ft furniture surfing to living room and BR. Manual w/c for longer distances and outdoors. Activities of Daily Living and IADL's Pt reports occasionally needing A for shoes and socks, otherwise I with all bADLs including bathing, self- feeding, toileting, and dressing. Social History Household Members family Living Arrangements House Number of Stairs To Enter/Railing? 0 Home Equipment Manual Wheelchair Shower Seat with Backrest Additional Social History Comment Pt lives with parents who provide all needed support, no c/gs M2 OT-IP Current Condition Start: 01/17/18 14:49 Freq: Status: Active Protocol: Document 01/18/18 13:35 ADH (Rec: 01/18/18 13:54 ADH [id number]) Occupational Therapy Current Condition Current Condition Evaluation Date 01/18/18 Treatment Diagnosis weakness Diagnosis Onset Date 01/17/18 M3 OT- IP Subjective and Pain Start: 01/17/18 14:49 Freq: Status: Active Protocol: Document 01/18/18 13:35 ADH (Rec: 01/18/18 13:54 ADH [email or web address]) OT- Subjective Occupational Therapy Visit Type Type Initial Evaluation Visit Start Time 10:33 Visit Stop Time 11:13 Total Visit Minutes 40 Notes Pt agreeable to OT services, mother present. Eval ended early d/t urgent EKG from other provider OT Pain Assessment Pain When Pain Assessed At Rest Pain Present Pain Present Pain Reported Location Bilateral Back Intensity 4 Scale Used Numeric (1 - 10) Description Aching Chronic Dull Throbbing Pain Behaviors Calling Out Guarding Holding Area Moaning Management Techniques Distraction Modification of Treatment Re-positioning Timing of Activity with Medications M6 OT- IP Functional Cognition Start: 01/17/18 14:49 Freq: Status: Active Protocol: Document 01/18/18 13:35 ADH (Rec: 01/18/18 13:54 ADH [email or web address]) Cognitive Factors Limiting Selfcare Function Cognitive Ability Level of Alertness Alert Patient Orientation Name Year Day of Week Place Situation Attention Span Ability Capable of Focused Attention Capable of Sustained Attention Ability to Follow Commands Able to Follow One Step Commands Memory Description No Deficits Noted Safety Awareness No Deficits Noted Problem Solving Ability No deficits Noted Executive Function Ability No Deficits Noted Abstract Thinking Ability No Deficits Noted OT- Vision and Hearing OT- Hearing Assessment OT- Hearing Assessment WFL M7 OT- IP Mobility and Balance Start: 01/17/18 14:49 Freq: Status: Active Protocol: Document 01/18/18 13:35 ADH (Rec: 01/18/18 13:54 ADH [email or web address]) OT- Bed Mobility Assessment Rolling Type of Rolling Log Rolling Level of Assistance Maximum Assistance 2 Person Assistance Supine to Sit Supine to Sit Assist Maximum Assistance 2 Person Assistance OT-Transfer Assessment Comments Mobility Comments Pt not transferred OOB d/t significant fall risk 2' decreased bLE sensation, decreased bLE muscle activation, fear of falling. Pt able to support self on EOB with bUE and SBA, though reported feeling like he was going to fall. OT- Balance Assessment Sitting Balance and Reactions Static Sitting Balance Ability Good M9 OT- IP Assessment and Plan Start: 01/17/18 14:49 Freq: Status: Active Protocol: Document 01/18/18 13:35 ADH (Rec: 01/18/18 13:54 ADH [email or web address]) OT Summary Assessment and Plan Potential Rehabilitation Potential Good Analytic Complexity at Evaluation Moderate Summary OT Impairments Pain Range of Motion Strength Balance Sensation Functional Mobility Self-Feeding Grooming Dressing Toileting Bathing Toilet Transfers Shower Transfers Assessment Summary Moderate complexity eval completed d/t pt's fluctuating status, unclear etiology, unclear expected progress, and complicating personal factors . Pt is presenting with significant decline in ability to perform bADLs and functional mobility, compared to baseline. Pt with general bUE ROM, strength and coordination well below baseline, unable to raise bUE overhead without pain and weakness, minimal md allergy immunology strength. Pt currently requiring heavy 2 person A for bed mobility and transfers d/ t decreased muscle engagement. Pt and mother present and engaged throughout session, with heightened anxiety over new symptoms. Goals Self-Feeding Goal Independent Grooming Goal Independent Dressing Goal Contact Guard Assistance Toileting Goal Contact Guard Assistance Frequency of Treatment Frequency Of Treatment Once a Day Treatment Plan OT Treatment Plan ADL Training Functional Mobility Patient/Family Education Discharge Planning Discharge Recommendations OT Discharge Recommendations SNF Rehab Other Discharge Recommendations Pt is far below baseline and has recent significant increase in needs. At [facility] pt was unable to transfer despite max A of 2 2' fall risk--recc mechanical lift. Pt would benefit from SNF stay, as family is unable to provide current level of care.
[2018-01-18] MEDS: ALPRAZolam 0.5 MG TABLET PO (14:10)
[2018-01-18 15:40] LABS: TSH w/ Reflex to FT4 1.36 uIU/mL (0.47-4.68)
--- NOTE | 2018-01-18 15:44 | PT.IPTN ---
Physical Therapy Treatment Note Subjective Physical Therapy Visit Type Type Patient Unavailable Notes pt getting lumbar MRI. Will follow up tomorrow with pt.
[2018-01-18 15:48] VITALS: BP 129/74; PULSE 101; RESP 19; TEMP 36.8; O2SAT 98
--- NOTE | 2018-01-18 17:06 | ST.IPIE ---
Visit Care Team Role Provider Type Santiago Reeder PA-C Family Provider Advanced Practioner Clinician Primary Care Provider Specialty: Wound Care Address: [address] [place] [address], [id number] Email: Deyanira Mosley DO Emergency Provider Physician Specialty: Emergency Medicine Address: [address] [place] [address], [id number] Email: Loida Pollock MD Admit Provider Physician Attending Provider Other Providers Specialty: Internal Medicine Address: [address] [place] [address], [id number] Email: Past Medical History (Last Updated 01/17/18 @ 02:20 by Ninoska Cruz RN) Other acquired deformity of other parts of limb (Acute Medical) muscle lengthening surgery to both legs: hip flexors,hamstings,abductors Asthma (Acute Medical) Cerebral palsy (Acute Medical) ST IP Initial Evaulation Report VICE PRESIDENT OF RECRUITING Clinical Swallow Evaluation Start: 01/18/18 16:49 Freq: Status: Active Protocol: Document 01/18/18 16:50 TLC (Rec: 01/18/18 17:06 TLC [id number]) Clinical Swallow Evaluation Session Time Visit Start Time 04:25 Visit Stop Time 04:45 Total Visit Minutes 20 Referral Reason for Referral Difficulty swallowing pills Setting Assessment Location Acute Care Visit Type Note Type Initial Evaluation Next Note Type Next Note Type Treatment Note Patient Information History Patient is a 32 year old male with Cerebral Palsy who was admitted for weakness. Per nursing, patient had difficulty swallowing noon meds. Patient states he has difficulty swallowing every now and then, but usually has no difficulty eating or feeding himself at home. Subjective Observations Patient seen in bed lying down . Patient was oriented, but confused about his recent onset of weakness unsure of the cause. He agreed to a swallow evaluation. HOB was raised to nearly 90 degrees. Evaluation Liquids Trialed Ice Chips Thin Solids Trialed Puree Dysphagia Mechanical Dysphagia Advanced Regular Administration Type Tea Spoon Straw Dependent Feeding Oral Impairment WNL Oral Strategies Upright at 90 degrees Oral Phase Comments Mild-moderately decreased lingual and labial strength and range of motion observed during [facility]; however , appeared adequate for mastication of all boluses. No oral residue observed. Pharyngeal Impairment Mildly Impaired Pharyngeal Phase Strategies Sitting Upright (90 deg) Small Bites and Sips Pharyngeal Phase Comments Suspect pharyngeal weakness due to patient's recent onset of generalized weakness evidenced by grimaces when swallowing textures and patient's complaints of difficulty swallowing. He was unable to give further details about his symptoms, he denied pain or things feeling stuck. Patient required two swallows to clear diced peaches and tropical fruit. No signs or symptoms of aspiration observed, but patient did report one occasion of choking earlier while drinking water lying in bed. Patient was not due for medication at this time, but we discussed different methods of administration including use of carrier as well as crushing meds in a carrier. Patient expressed understanding. Findings Impressions Patient appears to have mild dysphagia due to weakness requiring feeding assistance ( able to self-feed at baseline) as well as strategies to promote pharyngeal clearance and endurance during meals. Diet Recommendations Liquids Order Thin Diet Order Regular Medication Recommendations As Tolerated Additional Dietary Needs 1:1 Assistance Reminders to Use Strategies Aspiration Precautions Recommended Precautions Upright at 90 Degrees Frequent Rest Periods Small Bites/Sips Double Swallow Additional Precautions Smaller, more frequent meals during the day to conserve energy Treatment Plan Placement Recommendations after Snf Facility Discharge Appropriate for Therapy Yes Therapy Recommendations Cause of weakness is unknown at this time. If patient's strength does not return, he may be a good candidate for pharyngeal strengthening exercises. Recommend follow-up to assess diet tolerance and medication administration as well as strength and endurance during meals.
[2018-01-18 20:05] VITALS: BP 127/75; PULSE 97; RESP 20; TEMP 36.2; O2SAT 98
[2018-01-19] MEDS: HYDROCODONE/ACET 5/325 TABLET 2 TAB PO ×4 (00:30→13:44)
[2018-01-19 00:43] VITALS: BP 118/87; PULSE 72; RESP 16; TEMP 36.8; O2SAT 98
[2018-01-19 03:35] VITALS: BP 124/63; PULSE 59; RESP 16; TEMP 36.2; O2SAT 98
--- NOTE | 2018-01-19 06:14 | PC.NURSE ---
Pt refused robaxin. pt reports having pain all over. pt wakes up, uncomfortable and wants to be repositioned, but quickly falls back asleep while repositioning the patient. medicated with norco 2 tabs. morales intact. mom at bedside.
[2018-01-19] MEDS: BACLOFEN 10 MG TABLET 20 MG PO ×2 (08:15→13:44)
[2018-01-19 08:16] VITALS: BP 127/82; PULSE 81; RESP 18; TEMP 36.3; O2SAT 99
--- NOTE | 2018-01-19 11:32 | PM.DS.1 ---
History of Present Illness Chief complaint: WEAKNESS Narrative: Miguel Angel Myers is a 32 year old male with cerebral palsy who presented to the [facility] Emergency room last night for weakness. He has cerebral palsy. He usually is able to ambulate short distances by holding onto obrien and furniture years. His parents noticed that he was not able to ambulate to the bathroom. He also had difficulty getting off the toilet with assistance. He had difficulty transfer into the wheelchair as well. He has been having cough for about a week. He also complains of anterior chest pain intermittently. The pain comes and goes. He had night sweats last night. His chest x-ray did not reveal pneumonia. Abdominal CT scan also did not reveal any intra-abdominal cause of his weakness. He was admitted to the medicine floor for observation. Discharge Providers Date of admission: 01/16/18 23:33 Primary care physician: Santiago Reeder PA-C Consults: 01/16/18 22:32 Consult to Physician Routine Comment: Consulting Provider: Loida Pollock Reason for consultation: admission Has provider been notified: Yes 01/17/18 12:29 Consult to Occupational Therapy Evaluate & Treat Comment: Physician Instructions: d/c needs Consult to Physical Therapy Evaluate & Treat Comment: weakness Physician Instructions: Evaluate and Treat 01/18/18 13:14 Consult to Speech Therapy Evaluate & Treat Comment: Having difficulty swallowing foods and meds Physician Instructions: Evaluate and treat Discharge provider: Loida Pollock MD Discharge Date: 01/19/18 Summary Discharge Diagnosis: 1. Sudden onset of bilateral lower extremity weakness and numbness 2. Cerebral palsy 3. Possible dehydration Hospital Course: 1. Sudden onset of bilateral lower extremity weakness and numbness: Etiology is unclear. Brain MRI did not reveal any intracranial lesions that could be causing his symptoms. Lumbar spine MRI that was done on January 18, 2018 did not reveal lesions in the lumbar spine or lower thoracic spine region that could be causing his symptoms. He was started on Flexeril week prior to hospital admission. Flexeril was discontinued. We have also decreased his baclofen from 20 mg 4 times a day to 20 mg 3 times a day. He has not had any improvement of his symptoms. He received physical therapy and occupational therapy evaluation and treatment. 2. Possible dehydration: He received IV hydration after admission. Dehydration has resolved. 3. Cerebral palsy Status at Discharge Cognitive/behavioral status at discharge: He is alert and oriented Functional status at discharge: wheelchair bound Overall status at discharge: patient is not back to baseline Time Spent with Patient Greater than 30 minutes Exam Vital Signs (past 8 hours): Vital Signs - 8 hr 01/19/18 03:35 01/19/18 08:16 Temperature 97.2 F L 97.4 F L Pulse Rate 59 L 81 Respiratory Rate 16 18 Blood Pressure 124/63 H 127/82 H Pulse Oximetry 98 99 Pulse Oximetry 99 Oxygen Delivery Method Room Air Oxygen Flow Rate 0 Narrative Exam Narrative: GENERAL: Well-appearing, well-nourished and in no acute distress. HEENT: Head normocephalic, atraumatic. Eyes pupils equal round NECK: Supple, no JVD, CHEST: Breath sounds equal bilaterally, no wheezes rales or rhonchi. CARDIAC: Regular rate and rhythm without murmurs, rubs or gallops. ABDOMEN: Soft, nontender. Normoactive bowel sounds all 4 quadrants. No guarding or rebound. EXTREMITIES: no pitting edema. significant muscle atrophy in lower extremities. NEUROLOGICAL: Alert and oriented; weakness in bilateral lower extremity, decreased sensation to light touch on bilateral lower leg as well. SKIN: Warm, dry, no petechiae, no rashes or lesions Objective Imaging MRI - lumbar: Radiologist's impression: No trauma found, no mass lesion identified. Mild convex leftward scoliosis. Source of reported sudden onset of bilateral lower extremity weakness is not seen. Findings were called at time of this dictation to the hospitalist caring for the patient. Brain MRI: Radiologist's impression: 1. No evidence of infarct or other definite acute intracranial abnormality. 2. Lobulated mass lesion in the left sphenoid sinus with associated bony expansion suggestive of a nonaggressive process. The findings may represent a mucocele or sinus retention cysts. A neoplasm is less likely but cannot be excluded. Recommend further evaluation with intravenous contrast when clinically feasible. 3. Adjacent fluid within the left sphenoid sinus demonstrating axial to slightly hyperintense T2 signal and T1 hyperintensity is suggestive of blood product or proteinaceous content. 4. Mild periventricular white matter T2 hyperintensity suggestive of mild chronic white matter small vessel ischemic changes. Labs Result Diagrams: 01/16/18 16:10 01/16/18 16:10 Labs: Laboratory Results - last 24 hr 01/18/18 14:30 TSH 1.36 Discharge Plan Discharge Plan Patient Disposition: [facility] Under care of provider: Dr. Alyssa Morrell Discharge comment: Transferred to [facility] under the care of Dr. Alyssa Morrell Discharge Health Status Multidrug resistant organism: No MDRO MDRO Verified by culture: Yes Date verified: 01/19/18 Precautions: [place] Provider Discharge Instructions Diet: Regular Liquid consistency: Normal/Thin Food texture: Regular Discharge Data Primary Care Provider: Santiago Reeder Attending Provider: Loida Pollock Admit Date/Time: 01/16/18 23:33
[2018-01-19 12:04] VITALS: BP 133/77; PULSE 95; RESP 16; TEMP 37; O2SAT 98
--- NOTE | 2018-01-19 12:09 | PC.NURSE ---
Pending transfer - Report called to Amie - receiving nurse at [facility]. Reviewed hospital course. Acute urinary retention w/morales placement. Has saline lock. Has had imaging done with negative findings thus far. Has a cough and c/o intermittent c/p thought to be due to cough, ecg's have been completed and are neg. Admitted also with weakness. Pt remains weak, unable to transfer oob, reporting of sensation changes to lower legs and having spots on his legs which he has no feeling at all. Has had difficulty swallowing foods and meds, did have an episode of choking and was seen by speech therapy. They have neurology available at [facility] and pt can be evaluated further. Pt and his parents are aware and agreeable to the transfer. Vss. No bm since 01/16/18. Questions answered. Amie has our phone number if more information is needed.
--- NOTE | 2018-01-19 13:56 | PC.NURSE ---
Transfer: [facility] transfer crew here and given report. Reviewed hospital course, pt is a full code. Pt took a hydrocodone before leaving and his baclofen. He only wanted 1 hydrocodone at this time. He didn't want to be to sedated for his trip to [facility]. Parents at bedside. Pt is understandably nervous about transfer. He has never been sick like this before. His parents are very reassuring.
[2018-01-26 12:33] LABS: Vit B12 Binding Capacity unsat 937 pg/mL (650-1340)
== END 2018-01-19 13:55 | disposition short-term general hospital (02) | DRG 948 ==
LOC: ED 18:29 → AC 23:33
PROVIDERS: Student in an Organized Health Care Education/Training Program; Admitting Provider Internal Medicine; Emergency Provider Emergency Medicine; Family Provider Physician Assistant; PCP Physician Assistant; Visit Provider Internal Medicine
DX: R53.1 Weakness (principal); G80.9 Cerebral palsy, unspecified; E86.0 Dehydration; R20.0 Anesthesia of skin
CPT/HCPCS: 36415; 51798; 70551; 71045; 72148; 74177; 80053; 81001; 82550; 82608; 83605; 83735; 84443; 85025; 85379; 87040; 92610; 93005; 93041; 96360; 96361; 97163; 97166; 97535; 99285; 99291; G0378; Q9967

== ENCOUNTER 2019-02-25 16:04 | Outpatient (CLI) | payer OTHER, MEDICAID, SELFPAY ==
--- NOTE | 2019-03-02 14:40 | PT.OIE ---
Current Diagnoses Cerebral palsy, unspecified (02/25/19) Past Medical History (Last Updated 01/17/18 @ 02:20 by Ninoska Cruz, RN) Other acquired deformity of other parts of limb (Acute) Asthma (Acute) Cerebral palsy (Acute) Past Surgical History (Last Updated 01/17/18 @ 02:20 by Ninoska Cruz, RN) Status post osteotomy (Acute) Provider Visit Care Team Role Provider Type Bulmaro Antoine Attending Provider Non-Staff Primary Care Provider Specialty: Medical Address: [address] [place] [address], [facility] Email: Physical Therapy Initial Evaluation PT-OP-A Visit Information Start: 03/02/19 14:35 Freq: Status: Active Protocol: Document 03/02/19 14:38 IJS (Rec: 03/02/19 14:40 IJS [id number]) Out-Patient Physical Therapy Visit Information Visit Information Visit Type Initial Evaluation Visit Note 33 year old male seen for power wheelchair evaluation. Copy of the evaluation can be found in the paper chart. Visit Start Time 16:00 Visit Stop Time 17:00 Total Visit Minutes 60 Evaluation Information Evaluation Date 02/25/19
== END 2019-05-08 08:50 | disposition home or self-care (01) ==
LOC: PHYS 16:05
PROVIDERS: PCP Physician Assistant Medical; Visit Provider Physician Assistant Medical
DX: G80.9 Cerebral palsy, unspecified (principal)
CPT/HCPCS: 97162

== ENCOUNTER 2021-09-14 13:11 | Emergency (ER) | payer OTHER, MEDICAID, SELFPAY ==
[2021-09-14] VITALS (8 sets, daily range): BP systolic 148–192; BP diastolic 97–126; PULSE 114–122; RESP 20; TEMP 36.5; O2SAT 94–99; BMI 44.3
--- NOTE | 2021-09-14 13:26 | PC.NURSE ---
Patient with hx of CP and fall 15 years ago, was just dismissed 2 weeks ago from pain clinic d/t insurance issues. Has not had pain control meds in 2 weeks according to patient.
--- NOTE | 2021-09-14 13:34 | DI.RAD.S_ITS ---
PROCEDURE: XR THORACIC SPINE 3V INDICATIONS: fall with midline pain TECHNIQUE: 3 views of the thoracic spine were acquired. COMPARISON: None. FINDINGS: Bones: No fractures or dislocations. No suspicious bony lesions. 12 pairs of ribs are noted, and appear intact where visualized. Soft tissues: No paravertebral stripe thickening. IMPRESSION: No evidence acute bony abnormality of the thoracic spine. If clinical suspicion and/or symptoms persist, further assessment with repeat plain films, or advanced imaging (e.g., CT, MRI, or bone scan) may be helpful for further assessment. Dictated by: Christopher Keller M.D. on 09/14/2021 at 13:55 Approved by: Christopher Keller M.D. on 09/14/2021 at 13:56
[2021-09-14] MEDS: HYDROCODONE/ACET 5/325 TABLET 1 TAB PO (13:46)
--- NOTE | 2021-09-14 14:34 | ED.BACK ---
HPI - Back Pain/Injury General Chief Complaint: Back Pain/Injury Stated Complaint: Upper Back Pain Time Seen by Provider: 09/14/21 13:25 Source: patient and family History of Present Illness HPI Narrative: 35-year-old maleNonsmoker with history of cerebral palsy, asthma and chronic pain presents with family in the chief complaint of gradually worsening upper back pain for quite some time but significantly worse since a recent fall. His pain is in his mid upper back and is worse with palpation and some motion. He denies any headache or chest pain. He has no trouble breathing. He denies any cough or hemoptysis. Denies nausea, vomiting or diarrhea. He states his baseline heart rate is normally elevated, usually above 100. He denies any pain or swelling in his lower extremities and no history of clot. He states that he had been well controlled with a regimen of hydrocodone at the [facility] pain clinic but due to a change in insurance he can no longer go there. He has had trouble reconnecting with a new provider and had a cold at 1 point which precluded him from going to the appointment. His last prescription for hydrocodone #168 (5/325) filled on 07/02. He states that he has been taking them less than prescribed in order to stretch them out and took his last 1 yesterday. I did consult the [place] drug database to confirm this is true. Related Data Home Medications Medication Instructions Recorded Confirmed Vitamin C 1 tab PO QDAY 01/01/18 01/16/18 Vitamin D3 1 tab PO QDAY 01/01/18 01/16/18 baclofen 20 mg tablet 20 mg PO QID PRN MDD 4 01/01/18 01/16/18 hydrocodone 5 mg-acetaminophen 325 1 - 2 tab PO Q4-6H PRN MDD 6 01/01/18 01/16/18 mg tablet cyclobenzaprine 5 mg tablet 1 - 2 tab PO QHS PRN 01/16/18 01/16/18 methocarbamol 500 mg tablet 1 tab PO BID PRN 01/16/18 01/16/18 nortriptyline 10 mg capsule 20 mg PO 4-6XD 01/16/18 01/16/18 Previous Rx's Medication Instructions Recorded hydrocodone 5 mg-acetaminophen 325 1 tab PO Q4-6H PRN #20 tab 09/14/21 mg tablet lisinopril 5 mg tablet 5 mg PO DAILY #30 tab 09/14/21 Allergies Allergy/AdvReac Type Severity Reaction Status Date / Time gabapentin Allergy Unknown Verified 01/16/18 15:53 ibuprofen [From Motrin] Allergy Unknown Verified 01/16/18 15:53 Review of Systems Review of Systems Narrative: GENERAL: Denies chills, fatigue, malaise, fever, sweats. HEENT: Denies sinus pain, ear pain, sore throat, difficulty swallowing, dizziness. RESPIRATORY: Denies dyspnea, cough, wheezing, hemoptysis, sputum. CARDIOVASCULAR: Denies chest pain, palpitations, orthopnea, edema, GASTROINTESTINAL: Denies nausea, vomiting, abdominal pain, diarrhea, constipation, melena. : Denies dysuria, frequency, incontinence, hematuria, urinary retention. MUSCULOSKELETAL: See HPI SKIN: Denies rash, skin lesions, or other NEUROLOGIC: Denies weakness, headache, numbness, change in speech, confusion, seizures, incoordination. PSYCHIATRIC: No concerning psychosocial issues. 12 point review of systems is negative except for those stated above Patient History Medical History Asthma Cerebral palsy 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 No alcohol drinking or cigarette smoking. Smoking Status: Never smoker additional social history: He usually ambulates by holding onto obrien and furniture is for short distances inside his home. Smoking Status: Never smoker alcohol intake frequency: holidays/special occasions only Substance Use Type: does not use Exam Narrative Exam Narrative: GENERAL: [35 year old patient appears stated age. Well-developed patient, in mild distress. HEAD: Atraumatic. Normocephalic. EYES: Pupils equal round and reactive. Extraocular motions intact. No scleral icterus. No injection or drainage. ENT: Nose without bleeding, purulent drainage. Throat without erythema, tonsillar hypertrophy or exudate. Airway patent. NECK: Trachea midline. Non tender CARDIOVASCULAR: Tachycardic but regular rhythm without murmurs, gallops, or rubs. RESPIRATORY: Clear to auscultation. Breath sounds equal bilaterally. No wheezes, rales, or rhonchi. GASTROINTESTINAL: Abdomen soft, non-tender, nondistended. EXTREMITIES: No edema or joint tenderness. BACK: Mild midline upper thoracic tenderness to palpation, no bruising or ecchymosis, no crepitance or step-offs NEURO: AOx3. SKIN: No rash or erythema of visible areas Initial Vital Signs Initial Vital Signs: Vital Signs Temperature 97.7 F 09/14/21 13:20 Pulse Rate 122 H 09/14/21 13:20 Respiratory Rate 20 09/14/21 13:20 Blood Pressure 192/126 H 09/14/21 13:20 Pulse Oximetry 99 09/14/21 13:20 Course Orders Ordered: ED Orders 09/14/21 13:34 XR thoracic spine 3V Stat 09/14/21 14:47 Basic Metabolic Panel Stat Complete Blood Count AUTO DIFF Stat D Dimer Stat NT-proBNP (BNP-Adult 18+) Stat Troponin & CK Cardiac Panel Stat Discontinued Medications Hydrocodone Bitart/Acetaminophen (Hydrocodone/Acet 5/325 Tablet) 1 tab PO NOW ONE Stop: 09/14/21 13:35 Last Admin: 09/14/21 13:46 Dose: 1 tab Documented by: VASILE Sodium Chloride (Normal Saline 0.9%) 1,000 mls @ 1,000 mls/hr IV BOLUS ONE Stop: 09/14/21 15:35 Last Admin: 09/14/21 14:53 Dose: 1,000 mls/hr Documented by: VASILE Reevaluation(s) Reevaluation #1: Patient initially given a hydrocodone and did start to improve his symptoms and take the edge off. Given his heart rate still being in the 110s we talked about the possibility of other diagnoses most notably pulmonary embolism. As stated, he has no shortness of breath or chest pain or hemoptysis or history of clot. He was reluctant but eventually agreed to allow IV with labs. Vital Signs Vital signs: Vital Signs - 8 hr 09/14/21 13:20 09/14/21 13:51 09/14/21 13:52 Temperature 97.7 F Pulse Rate 122 H 122 H Respiratory Rate 20 Blood Pressure 192/126 H 152/97 H Pulse Oximetry 99 09/14/21 14:49 09/14/21 15:00 09/14/21 15:25 Temperature Pulse Rate 118 H 115 H 118 H Respiratory Rate Blood Pressure 148/99 H Pulse Oximetry 96 95 95 09/14/21 15:30 09/14/21 16:00 Temperature Pulse Rate 119 H 114 H Respiratory Rate Blood Pressure Pulse Oximetry 95 94 MDM - Back Pain/Injury Lab Data Result diagrams: 09/14/21 14:47 09/14/21 14:47 Labs: Lab Results 09/14/21 09/14/21 09/14/21 Range/Units 14:47 14:47 14:47 WBC 13.3 H (4.5-11.0) X10^3/uL RBC 6.65 H (4.5-5.9) X10^6/uL Hgb 16.9 (13.5-17.5) g/dL Hct 51.5 (41-53) % MCV 77.3 L (80-100) fL MCH 25.3 L (26-34) PG MCHC 32.8 (30-36) % RDW 14.9 H (11.6-14.8) % Plt Count 366 (150-400) X10^3/uL Neut % (Auto) 69.1 (50-75) % Lymph % (Auto) 20.6 L (25-40) % [place] % (Auto) 8.4 (3-14) % Eos % (Auto) 1.3 L (2-4) % Baso % (Auto) 0.6 (0-2) % Neut # (Auto) 9200 H (6344-6058) /uL Lymph # (Auto) 2800 (0948-9740) /uL [place] # (Auto) 1100 H (0-900) /uL Eos # (Auto) 200 (0-450) /uL Baso # (Auto) 100 (0-100) /uL D-Dimer < 200 (<230) ng/mL Sodium 134 L (137-145) mmol/L Potassium 4.6 (3.4-5.1) mmol/L Chloride 97 L (98-107) mmol/L Carbon Dioxide 27 (22-32) mmol/L BUN 19 (9-20) mg/dL Creatinine 0.51 L (0.66-1.25) mg/dL Estimated GFR > 60.0 (>60) mL/min BUN/Creatinine Ratio 37.3 H (6-22) Glucose 342 H (70-100) mg/dL Calcium 9.8 (8.4-10.2) mg/dL Total Creatine Kinase 39 L (55-170) U/L CK-MB (CK-2) TNP CK-MB (CK-2) Rel Index TNP Troponin I < 0.012 (0.01-0.034) ng/mL NT-Pro-B Natriuret Pep 13 (<125) pg/mL Imaging Data Thoracic Pain: Radiologist's Impression: [address] [address] XRay Report Signed Patient: Miguel Angel Myers MR#: [id number] : 1985 Acct:[id number] Age/Sex: 35 / M Date of Service: 09/14/21 Loc: ED Accession Number: [id number] ?? Procedure: XR thoracic spine 3V Ordering Provider: Jersey Ayers D.O. PROCEDURE:? XR THORACIC SPINE 3V ? INDICATIONS:? fall with midline pain ? TECHNIQUE:? 3 views of the thoracic spine were acquired.? ? COMPARISON:? None. ? FINDINGS:? ? Bones:? No fractures or dislocations.? No suspicious bony lesions.? 12 pairs of ribs are noted, and appear intact where visualized.? ? Soft tissues:? No paravertebral stripe thickening.? ? ? IMPRESSION:? No evidence acute bony abnormality of the thoracic spine. ? If clinical suspicion and/or symptoms persist, further assessment with repeat plain films, or advanced imaging (e.g., CT, MRI, or bone scan) may be helpful for further assessment. ? Dictated by: Christopher Keller M.D. on 09/14/2021 at 13:55 ? ? Approved by: Christopher Keller M.D. on 09/14/2021 at 13:56 ? MDM Narrative Medical decision making narrative: Patient with reassuring history and physical exam. Symptoms have improved after above-stated therapies. There diagnoses including potential thoracic compression fracture thought less likely given lack of findings on imaging. Additionally, pulmonary embolism considered but not pursued with CT angiogram given negative D-dimer. Patient given extensive return precautions and questions have been answered to his apparent satisfaction Discharge Plan Departure Patient Disposition: Home Clinical Impression: Chronic back pain, Medical non-compliance Instructions: Thoracic Back Pain Activity Restrictions/Additional Instructions: *You have been diagnosed with [acute on chronic back pain, likely due to a combination of medical noncompliance and a recent fall *What to do: *Please continue to take your regular medications as directed. [x ] New medication prescriptions sent to your pharmacy: [[facility] in [place] ] [ ] New medication written as a paper prescription [ ] No new medications given *Please follow up with your primary care provider in 2-3 days, call for an appointment. Let them know you were seen in the Emergency Department and that we ask that you be seen in follow up. We will electronically transmit a record of today's note if your PCP is in our system *If you do not have a primary care provider please contact the [facility] Resource line at [phone]. They will ask some questions about your medical history and help get you set up with a doctor in the community. *Return to Emergency Department if you should have any new, worsening or concerning symptoms, such as [fever greater than 101 F, shaking chills, worsening pain, persistent vomiting or other bothersome symptoms] Prescriptions: New hydrocodone-acetaminophen 5-325 mg tablet 1 tab PO Q4-6H PRN (Reason: pain) Qty: 20 0RF lisinopril 5 mg tablet 5 mg PO DAILY Qty: 30 0RF No Action hydrocodone-acetaminophen 5-325 mg tablet 1 - 2 tab PO Q4-6H MDD 6 PRN (Reason: Pain, Moderate) 0RF Label Comments: patient states possibly took one today baclofen 20 mg tablet 20 mg PO QID MDD 4 PRN (Reason: Muscle Spasm) 0RF Vitamin C 1 tab PO QDAY 0RF Vitamin D3 1 tab PO QDAY 0RF methocarbamol 500 mg tablet 1 tab PO BID PRN (Reason: Muscle Spasm) 0RF nortriptyline 10 mg capsule 20 mg PO 4-6XD 0RF cyclobenzaprine 5 mg tablet 1 - 2 tab PO QHS PRN (Reason: Pain, Moderate) 0RF Referrals: Bulmaro Antoine PA-C [Primary Care Provider] -
[2021-09-14] MEDS: SODIUM CHLORIDE 0.9% 1,000 ML 1000 ML IV (14:53)
[2021-09-14 14:57] LABS: Add Manual Diff / Slide Review NO; Basophils Absolute Auto 100 /uL (0-100); Basophils Percent Auto 0.6 % (0-2); Eosinophils Absolute Auto 200 /uL (0-450); Eosinophils Percent Auto 1.3 % (2-4); Hematocrit 51.5 % (41-53); Hemoglobin 16.9 g/dL (13.5-17.5); Lymphocytes Absolute Auto 2800 /uL (1100-4500); Lymphocytes Percent Auto 20.6 % (25-40); Mean Corpuscular HGB Conc 32.8 % (30-36); Mean Corpuscular Hemoglobin 25.3 PG (26-34); Mean Corpuscular Volume 77.3 fL (80-100); Monocytes Absolute Auto 1100 /uL (0-900); Monocytes Percent Auto 8.4 % (3-14); Neutrophils Absolute Auto 9200 /uL (1500-7000); Neutrophils Percent Auto 69.1 % (50-75); Platelet Count 366 X10^3/uL (150-400); Red Blood Cell Count 6.65 X10^6/uL (4.5-5.9); Red Cell Distribution Width 14.9 % (11.6-14.8); White Blood Cell Count 13.3 X10^3/uL (4.5-11.0)
[2021-09-14 15:30] LABS: BUN Creatinine Ratio 37.3 (6-22); Blood Urea Nitrogen 19 mg/dL (9-20); Calcium 9.8 mg/dL (8.4-10.2); Carbon Dioxide 27 mmol/L (22-32); Chloride 97 mmol/L (98-107); Creatine Kinase 39 U/L (55-170); Estimated Glomerular Filt Rate > 60.0 mL/min (>60); Glucose 342 mg/dL (70-100); HEMOLYSIS < 15 (0-50); Potassium 4.6 mmol/L (3.4-5.1); Sodium 134 mmol/L (137-145)
[2021-09-14 15:40] LABS: NT-proBNP (BNP-Adult 18+) 13 pg/mL (<125); Troponin I < 0.012 ng/mL (0.01-0.034)
[2021-09-14 15:43] LABS: D Dimer < 200 ng/mL (<230)
== END 2021-09-14 16:22 | disposition home or self-care (01) ==
PROVIDERS: Emergency Provider Emergency Medicine; PCP Physician Assistant Medical
DX: M54.6 Pain in thoracic spine (principal); G89.29 Other chronic pain; Z91.14 Patient's other noncompliance with medication regimen
CPT/HCPCS: 36415; 72072; 80048; 82550; 83880; 84484; 85025; 85379; 96360; 99284

== ENCOUNTER 2022-01-27 15:13 | Emergency (ER) | payer OTHER, MEDICAID, SELFPAY ==
[2022-01-27 15:40] VITALS: BP 190/120; PULSE 124; RESP 22; TEMP 36.5; O2SAT 95; BMI 44.3
--- NOTE | 2022-01-27 15:58 | DI.RAD.S_ITS ---
PROCEDURE: XR CHEST 1V INDICATIONS: suspected sepsis TECHNIQUE: One view of the chest was acquired. COMPARISON: [facility], CR, XR CHEST 1V, 01/16/2018, 15:58. FINDINGS: Surgical changes and devices: None. Lungs and pleura: Slightly low lung volumes. The lungs are otherwise clear. No pleural effusions or pneumothorax. Mediastinum: Mediastinal contours appear normal. Heart size is normal. Bones and chest wall: No suspicious bony lesions. Overlying soft tissues appear unremarkable. IMPRESSION: No evidence of an acute cardiopulmonary abnormality. Dictated by: Michael Gonzales D.O. on 01/27/2022 at 15:56 Approved by: Michael Gonzlaes D.O. on 01/27/2022 at 15:57
[2022-01-27 16:30] LABS: COVID19 -Nasal RAPID Negative (Negative)
--- NOTE | 2022-01-27 17:02 | ED_ITS ---
HPI - General Adult General Chief complaint: Shortness of Breath/Dyspnea Stated complaint: stuffy nose/body aches couple weeks Time Seen by Provider: 01/27/22 16:56 Source: patient Mode of arrival: Wheelchair History of Present Illness HPI narrative: 36-year-old male. History of cerebral palsy and chronic pain and also [id number] diabetes presents the emergency department today for 3 weeks of coughing and body aches and a stuffy nose. He states that his symptoms have worsened over the past couple days. Contact his primary doctor who told him that they would not see him because of his symptoms. He reports no headache. No sinus congestion. No sore throat. No skin changes. No rashes. No abdominal pain. No neck pain. Related Data Home Medications Medication Instructions Recorded Confirmed Vitamin C 1 tab PO QDAY 01/01/18 01/16/18 Vitamin D3 1 tab PO QDAY 01/01/18 01/16/18 baclofen 20 mg tablet 20 mg PO QID PRN MDD 4 01/01/18 01/16/18 hydrocodone 5 mg-acetaminophen 325 1 - 2 tab PO Q4-6H PRN MDD 6 01/01/18 01/16/18 mg tablet cyclobenzaprine 5 mg tablet 1 - 2 tab PO QHS PRN 01/16/18 01/16/18 methocarbamol 500 mg tablet 1 tab PO BID PRN 01/16/18 01/16/18 nortriptyline 10 mg capsule 20 mg PO 4-6XD 01/16/18 01/16/18 Previous Rx's Medication Instructions Recorded hydrocodone 5 mg-acetaminophen 325 1 tab PO Q4-6H PRN #20 tab 09/14/21 mg tablet lisinopril 5 mg tablet 5 mg PO DAILY #30 tab 09/14/21 azithromycin 250 mg tablet 250 mg PO DAILY 4 Days #4 tab 01/27/22 Allergies Allergy/AdvReac Type Severity Reaction Status Date / Time gabapentin Allergy Unknown Verified 01/16/18 15:53 ibuprofen [From Motrin] Allergy Unknown Verified 01/16/18 15:53 Review of Systems Constitutional Constitutional: Reports body ache(s), Reports chills, Reports fatigue and Reports fever(s) ENT Ears, Nose, Mouth, and Throat: Reports system reviewed and no additional complaints, except as documented Cardiovascular Cardiovascular: Denies chest pain Respiratory Respiratory: Reports cough Gastrointestinal Gastrointestinal: Denies abdominal pain, Denies nausea and Denies vomiting Genitourinary Genitourinary: Denies dysuria Integumentary/Breasts Skin/Breast: Denies rash Neurologic Comments: No change in neurologic status Endocrine Endocrine: Reports fatigue Hematologic/Lymphatic On Anticoagulants: No Allergic/Immunologic Allergic/Immunologic: Reports system reviewed and no additional complaints, except as documented Patient History Medical History Asthma Cerebral palsy 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 No alcohol drinking or cigarette smoking. Smoking Status: Never smoker additional social history: He usually ambulates by holding onto obrien and furniture is for short distances inside his home. Smoking Status: Never smoker alcohol intake frequency: holidays/special occasions only Substance Use Type: does not use Exam Initial Vital Signs Initial Vital Signs: Vital Signs Temperature 97.7 F 01/27/22 15:40 Pulse Rate 124 H 01/27/22 15:40 Respiratory Rate 22 01/27/22 15:40 Blood Pressure 190/120 H 01/27/22 15:40 Pulse Oximetry 95 01/27/22 15:40 Const General: cooperative, comfortable and well developed HENPR Mouth: moist mucous membranes Resp Effort & Inspection: normal respiratory effort Auscultation: clear to auscultation bilaterally Cardio Rate: tachycardic Rhythm: regular rhythm GI Inspection: normal to inspection Skin General: no rashes or lesions noted Neuro General: patient alert, patient awake, patient oriented x3 and moves all extrem ities Extrem General: normal to inspection and capillary refill normal Psych Appearance: grossly normal and well kempt Course Orders Ordered: ED Orders 01/27/22 15:58 XR chest 1V Stat EKG-12 Lead Stat RT Consult Eval and Treat NOW 01/27/22 16:00 COVID19 -Nasal RAPID/Pre-Proc Stat Respiratory Panel (Film Array) Stat 01/27/22 17:08 Complete Blood Count AUTO DIFF Stat Comprehensive Metabolic Panel Stat Lactate (Lactic Acid) Stat Lipase Stat Procalcitonin Stat 01/27/22 17:27 Blood Culture Stat Discontinued Medications Hydrocodone Bitart/Acetaminophen (Hydrocodone/Acet 5/325 Tablet) 1 tab PO NOW ONE Stop: 01/27/22 18:37 Last Admin: 01/27/22 18:47 Dose: 1 tab Documented by: VASILE Azithromycin (Azithromycin 250 Mg Tablet) 500 mg PO NOW ONE Stop: 01/27/22 17:30 Last Admin: 01/27/22 17:46 Dose: 500 mg Documented by: VASILE Sodium Chloride (Normal Saline 0.9%) 1,000 mls @ 1,000 mls/hr IV BOLUS ONE Stop: 01/27/22 16:57 Last Infusion: 01/27/22 18:29 Dose: 0 mls/hr Documented by: Admin: 01/27/22 17:10 Dose: 1,000 mls/hr Documented by: VASILE Ceftriaxone Sodium 1,000 mg/ (Sodium Chloride) 100 mls @ 200 mls/hr IV NOW ONE Stop: 01/27/22 18:20 Last Admin: 01/27/22 18:26 Dose: 200 mls/hr Documented by: VASILE Morphine Sulfate (Morphine 4 Mg/Ml Inj) 4 mg IV NOW ONE Stop: 01/27/22 18:20 Last Admin: 01/27/22 18:27 Dose: Not Given Documented by: VASILE Vital Signs Vital signs: Vital Signs - 8 hr 01/27/22 15:40 01/27/22 17:48 Temperature 97.7 F Pulse Rate 124 H 122 H Respiratory Rate 22 Blood Pressure 190/120 H Pulse Oximetry 95 96 Medical Decision Making Medical Records Medical records reviewed: Yes I reviewed the patient's medical records. Lab Data Lab results reviewed: Yes I reviewed the patient's lab results. Result diagrams: 01/27/22 17:08 01/27/22 17:08 Labs: Lab Results 01/27/22 01/27/22 01/27/22 Range/Units 16:00 16:00 17:08 WBC 18.2 H (4.5-11.0) X10^3/uL RBC 6.43 H (4.5-5.9) X10^6/uL Hgb 17.0 (13.5-17.5) g/dL Hct 51.2 (41-53) % MCV 79.7 L (80-100) fL MCH 26.4 (26-34) PG MCHC 33.2 (30-36) % RDW 14.4 (11.6-14.8) % Plt Count 411 H (150-400) X10^3/uL Neut % (Auto) 72.8 (50-75) % Lymph % (Auto) 17.3 L (25-40) % [place] % (Auto) 7.3 (3-14) % Eos % (Auto) 1.9 L (2-4) % Baso % (Auto) 0.7 (0-2) % Neut # (Auto) 40789 H (5152-5975) /uL Lymph # (Auto) 3100 (9959-8671) /uL [place] # (Auto) 1300 H (0-900) /uL Eos # (Auto) 400 (0-450) /uL Baso # (Auto) 100 (0-100) /uL Sodium (137-145) mmol/L Potassium (3.4-5.1) mmol/L Chloride (98-107) mmol/L Carbon Dioxide (22-32) mmol/L BUN (9-20) mg/dL Creatinine (0.66-1.25) mg/dL Estimated GFR (>60) mL/min BUN/Creatinine Ratio (6-22) Glucose (70-100) mg/dL Lactate (0.7-2.1) mmol/L Calcium (8.4-10.2) mg/dL Total Bilirubin (0.2-1.3) mg/dL AST (17-59) IU/L ALT (<50) IU/L Alkaline Phosphatase (38-126) U/L Total Protein (6.3-8.2) g/dL Albumin (3.5-5.0) g/dL Globulin (1.7-4.1) g/dL Albumin/Globulin Ratio (1.0-2.8) Lipase (23-300) U/L Procalcitonin (<0.5) ng/mL Chlamy pneumoniae PCR Not detected (Not Detect) Adenovirus (PCR) Not detected (Not Detect) B. pertussis DNA (PCR) Not detected (Not Detecte) B.parapertussis DNA PCR Not detected (Not Detecte) Coronavirus OC43 (PCR) Not detected (Not Detect) Coronavirus HKU1 (PCR) Not detected (Not Detect) Coronavirus 229E (PCR) Not detected (Not Detect) SARS-CoV-2 (PCR) Negative Not detected (Negative) Coronavirus NL63 (PCR) Not detected (Not Detect) Human Metapneumovir PCR Not detected (Not Detect) Influenza Type A (PCR) Not detected (Not Detect) Influenza Type B (PCR) Not detected (Not Detect) M. pneumoniae (PCR) Not detected (Not Detect) Parainfluenza 1 (PCR) Not detected (Not Detect) Parainfluenza 2 (PCR) Not detected (Not Detect) Parainfluenza 3 (PCR) Not detected (Not Detect) Parainfluenza 4 (PCR) Not detected (Not Detect) RSV (PCR) Not detected (Not Detect) Entero/Rhino (PCR) Not detected (Not Detect) 01/27/22 01/27/22 Range/Units 17:08 17:08 WBC (4.5-11.0) X10^3/uL RBC (4.5-5.9) X10^6/uL Hgb (13.5-17.5) g/dL Hct (41-53) % MCV (80-100) fL MCH (26-34) PG MCHC (30-36) % RDW (11.6-14.8) % Plt Count (150-400) X10^3/uL Neut % (Auto) (50-75) % Lymph % (Auto) (25-40) % [place] % (Auto) (3-14) % Eos % (Auto) (2-4) % Baso % (Auto) (0-2) % Neut # (Auto) (3912-5151) /uL Lymph # (Auto) (5859-3659) /uL [place] # (Auto) (0-900) /uL Eos # (Auto) (0-450) /uL Baso # (Auto) (0-100) /uL Sodium 135 L (137-145) mmol/L Potassium 4.7 (3.4-5.1) mmol/L Chloride 99 (98-107) mmol/L Carbon Dioxide 22 (22-32) mmol/L BUN 22 H (9-20) mg/dL Creatinine 0.60 L (0.66-1.25) mg/dL Estimated GFR > 60 (>60) mL/min BUN/Creatinine Ratio 36.7 H (6-22) Glucose 401 H (70-100) mg/dL Lactate 2.4 H (0.7-2.1) mmol/L Calcium 9.3 (8.4-10.2) mg/dL Total Bilirubin 0.4 (0.2-1.3) mg/dL AST 43 (17-59) IU/L ALT 66 H (<50) IU/L Alkaline Phosphatase 132 H (38-126) U/L Total Protein 8.4 H (6.3-8.2) g/dL Albumin 4.8 (3.5-5.0) g/dL Globulin 3.6 (1.7-4.1) g/dL Albumin/Globulin Ratio 1.3 (1.0-2.8) Lipase 174 (23-300) U/L Procalcitonin 0.15 (<0.5) ng/mL Chlamy pneumoniae PCR (Not Detect) Adenovirus (PCR) (Not Detect) B. pertussis DNA (PCR) (Not Detecte) B.parapertussis DNA PCR (Not Detecte) Coronavirus OC43 (PCR) (Not Detect) Coronavirus HKU1 (PCR) (Not Detect) Coronavirus 229E (PCR) (Not Detect) SARS-CoV-2 (PCR) (Negative) Coronavirus NL63 (PCR) (Not Detect) Human Metapneumovir PCR (Not Detect) Influenza Type A (PCR) (Not Detect) Influenza Type B (PCR) (Not Detect) M. pneumoniae (PCR) (Not Detect) Parainfluenza 1 (PCR) (Not Detect) Parainfluenza 2 (PCR) (Not Detect) Parainfluenza 3 (PCR) (Not Detect) Parainfluenza 4 (PCR) (Not Detect) RSV (PCR) (Not Detect) Entero/Rhino (PCR) (Not Detect) Urine Dip Bedside Urine Glucose 1000 mg/dl Bedside Urine Bilirubin - Negative Bedside Urine Ketone - Negative Urine Specific [place] 1.020 Bedside Urine Occult Blood - Negative Bedside Urine pH 6 Bedside Urine Protein - Negative Bedside Urine Urobilinogen - Negative Bedside Urine Nitrite - Negative Bedside Urine Leukocytes - Negative Esterase Point of care testing: Urine Dip Bedside Urine Glucose 1000 mg/dl Bedside Urine Bilirubin - Negative Bedside Urine Ketone - Negative Urine Specific [place] 1.020 Bedside Urine Occult Blood - Negative Bedside Urine pH 6 Bedside Urine Protein - Negative Bedside Urine Urobilinogen - Negative Bedside Urine Nitrite - Negative Bedside Urine Leukocytes - Negative Esterase Imaging Data Chest x-ray: Radiologist's Impression: [address] [address] XRay Report Signed Patient: Miguel Angel Myers MR#: [id number] : 1985 Acct:[id number] Age/Sex: 36 / M Date of Service: 01/27/22 Loc: ED Accession Number: [id number] ?? Procedure: XR chest 1V Ordering Provider: Miguel Angel Lama D.O. PROCEDURE:? XR CHEST 1V ? INDICATIONS:? suspected sepsis ? TECHNIQUE:? One view of the chest was acquired.? ? COMPARISON:? [facility], CR, XR CHEST 1V, 01/16/2018, 15:58. ? FINDINGS:? ? Surgical changes and devices:? None.? ? Lungs and pleura:? Slightly low lung volumes.? The lungs are otherwise clear.? No pleural effusions or pneumothorax.? ? Mediastinum:? Mediastinal contours appear normal.? Heart size is normal.? ? Bones and chest wall:? No suspicious bony lesions.? Overlying soft tissues appear unremarkable.? ? IMPRESSION:? ? No evidence of an acute cardiopulmonary abnormality. ? ? Dictated by: Michael Gonzales D.O. on 01/27/2022 at 15:56 ? ? Approved by: Michael Gonzales D.O. on 01/27/2022 at 15:57? ECG Data Attestation: I personally reviewed and interpreted this ECG as follows: Interpretation: Sinus tachycardia Ventricular rate 136 Normal axis Normal QRS Normal QTC No ST T wave changes MDM Narrative Medical decision making narrative: Patient does have a very coarse cough however does have clear lung exam. Chest x-ray shows no signs of pneumonia. Respiratory panel negative for COVID a or other viral illness. Does have a leukocytosis. Is tachycardic but was tachycardic the last time he was here in the ER. He was given antibiotics for treatment of presumed pneumonia. Lactate elevated. Not hypotensive. Not altered. Patient is also hyperglycemic. He is not currently on insulin but is on metformin. Did inform him that this could because of a lack of diabetes control or potentially even an infection causing this. We did discuss admission to the hospital for further evaluation and treatment of his presumed pneumonia given his labs and his vital signs. Patient was alert oriented x3. GCS of 15. Not clinically intoxicated. My pain is capacity make decisions. Is discussion of the risks and benefits admission to the hospital made with his family at bedside. They tried to encourage him to stay however the patient states he would like to be discharged home. He expressed understanding of the risks of this given his vital signs and his labs. Will sent home with a prescription for azithromycin. He was given very strict return precautions. He expressed understanding and agreement. Discharge Plan Departure Patient Disposition: Home Clinical Impression: Pneumonia, Hyperglycemia Instructions: DI for Pneumonia -- Adult Activity Restrictions/Additional Instructions: Despite our discussion about being admitted to the hospital you would like to be discharged home. Please take your antibiotics as directed the prescription was transmitted to [facility]. It is also important that you follow-up with your primary doctor with regard to your visit today and also your elevated blood sugars. Return to the emergency department for any new or worsening symptoms. Prescriptions: New azithromycin 250 mg tablet 250 mg PO DAILY 4 Days Qty: 4 0RF Rx Instructions: start on day 2 of therapy No Action hydrocodone-acetaminophen 5-325 mg tablet 1 - 2 tab PO Q4-6H MDD 6 PRN (Reason: Pain, Moderate) 0RF Label Comments: patient states possibly took one today baclofen 20 mg tablet 20 mg PO QID MDD 4 PRN (Reason: Muscle Spasm) 0RF Vitamin C 1 tab PO QDAY 0RF Vitamin D3 1 tab PO QDAY 0RF hydrocodone-acetaminophen 5-325 mg tablet 1 tab PO Q4-6H PRN (Reason: pain) Qty: 20 0RF lisinopril 5 mg tablet 5 mg PO DAILY Qty: 30 0RF methocarbamol 500 mg tablet 1 tab PO BID PRN (Reason: Muscle Spasm) 0RF nortriptyline 10 mg capsule 20 mg PO 4-6XD 0RF cyclobenzaprine 5 mg tablet 1 - 2 tab PO QHS PRN (Reason: Pain, Moderate) 0RF Referrals: Kassandra Morejon ARNP [Primary Care Provider] -
[2022-01-27] MEDS: SODIUM CHLORIDE 0.9% 1,000 ML 1000 ML IV (17:10)
[2022-01-27 17:19] LABS: Add Manual Diff / Slide Review NO; Basophils Absolute Auto 100 /uL (0-100); Basophils Percent Auto 0.7 % (0-2); Eosinophils Absolute Auto 400 /uL (0-450); Eosinophils Percent Auto 1.9 % (2-4); Hematocrit 51.2 % (41-53); Lymphocytes Absolute Auto 3100 /uL (1100-4500); Lymphocytes Percent Auto 17.3 % (25-40); Mean Corpuscular HGB Conc 33.2 % (30-36); Mean Corpuscular Hemoglobin 26.4 PG (26-34); Mean Corpuscular Volume 79.7 fL (80-100); Monocytes Absolute Auto 1300 /uL (0-900); Monocytes Percent Auto 7.3 % (3-14); Neutrophils Absolute Auto 13200 /uL (1500-7000); Neutrophils Percent Auto 72.8 % (50-75); Platelet Count 411 X10^3/uL (150-400); Red Blood Cell Count 6.43 X10^6/uL (4.5-5.9); Red Cell Distribution Width 14.4 % (11.6-14.8); White Blood Cell Count 18.2 X10^3/uL (4.5-11.0)
[2022-01-27 17:30] LABS: Lactate (Lactic Acid) 2.4 mmol/L (0.7-2.1)
[2022-01-27 17:31] LABS: Alanine Aminotransferase 66 IU/L (<50); Albumin 4.8 g/dL (3.5-5.0); Albumin Globulin Ratio 1.3 (1.0-2.8); Alkaline Phosphatase 132 U/L (38-126); Aspartate Aminotransferase 43 IU/L (17-59); BUN Creatinine Ratio 36.7 (6-22); Bilirubin Total 0.4 mg/dL (0.2-1.3); Blood Urea Nitrogen 22 mg/dL (9-20); Calcium 9.3 mg/dL (8.4-10.2); Carbon Dioxide 22 mmol/L (22-32); Chloride 99 mmol/L (98-107); Estimated Glomerular Filt Rate > 60 mL/min (>60); Globulin 3.6 g/dL (1.7-4.1); Glucose 401 mg/dL (70-100); HEMOLYSIS < 15 (0-50); Lipase 174 U/L (23-300); Potassium 4.7 mmol/L (3.4-5.1); Sodium 135 mmol/L (137-145); Total Protein 8.4 g/dL (6.3-8.2)
[2022-01-27] MEDS: AZITHROMYCIN 250 MG TABLET 500 MG PO (17:46)
[2022-01-27 17:47] LABS: Procalcitonin 0.15 ng/mL (<0.5)
[2022-01-27 17:48] VITALS: PULSE 122; O2SAT 96
[2022-01-27 17:54] LABS: Adenovirus Not Detected (Not Detect); B. parapertussis Not Detected (Not Detecte); Bordetella pertussis Not Detected (Not Detecte); Chlamydophila pneumoniae Not Detected (Not Detect); Coronavirus 229E Not Detected (Not Detect); Coronavirus HKU1 Not Detected (Not Detect); Coronavirus NL 63 Not Detected (Not Detect); Coronavirus OC43 Not Detected (Not Detect); Human Metapneumovirus Not Detected (Not Detect); Human Rhinovirus/Enterovirus Not Detected (Not Detect); Influenza A Not Detected (Not Detect); Influenza B Not Detected (Not Detect); Parainfluenza Virus 1 Not Detected (Not Detect); Parainfluenza Virus 2 Not Detected (Not Detect); Parainfluenza Virus 3 Not Detected (Not Detect); Parainfluenza Virus 4 Not Detected (Not Detect); Respiratory Syncytial Virus Not Detected (Not Detect); SARS- CoV-2 Not Detected (Not Detecte)
[2022-01-27 17:55] LABS: Mycoplasma pneumoniae Not Detected (Not Detect)
[2022-01-27] MEDS: cefTRIAXone 1,000 MG in SODIUM CHLORIDE 0.9% 100 ML 200 MG IV (18:26)
[2022-01-27] MEDS: HYDROCODONE/ACET 5/325 TABLET 1 TAB PO (18:47)
[2022-01-27 19:15] LABS: Reflexed Lactate in 2 Hours Y
[2022-01-27 19:33] VITALS: BP 133/85; PULSE 122; RESP 18; O2SAT 95
[2022-01-27 19:47] LABS: Lactate 2HR (Lactic Acid Rflx) 1.5 mmol/L (0.7-2.1)
== END 2022-01-27 19:34 | disposition home or self-care (01) ==
PROVIDERS: Emergency Provider Emergency Medicine; PCP Nurse Practitioner
DX: J18.9 Pneumonia, unspecified organism (principal); R73.9 Hyperglycemia, unspecified; R00.0 Tachycardia, unspecified; Z20.822 Contact with and (suspected) exposure to COVID-19
CPT/HCPCS: 36415; 71045; 80053; 81003; 83605; 83690; 84145; 85025; 87040; 87633; 87635; 93005; 93010; 96365; 99284; C9803; J0696